=== PATIENT | female | born 1975 | race Caucasian/White ===

== ENCOUNTER 2023-04-07 09:21 | Outpatient (OUT) | payer BC, SELFPAY ==
--- NOTE | 2023-04-07 09:25 | XR_ITS ---
The [address] [address] Patient Name: BONILLA TAVERA MRN: [id number] date: 1975 Sex: F Assigned Patient Location: [facility] Current Patient Location: [facility] Accession/Order Number: [id number] Exam Date: 04/07/2023 09:40 Report Date: 04/07/2023 10:31 At the request of: ANGELI HUFFMAN Procedure: XR cervical spine 5V EXAM: XR cervical spine 5V, XR shoulder LT min 2V HISTORY: M25.512, M54.2 neck pain, left shoulder pain COMPARISON: None TECHNIQUE: 5 views of the cervical spine were obtained to include AP, lateral, and oblique views. FINDINGS: Vertebral body heights are grossly well-maintained. No significant disc space narrowing. Mild degenerative facet changes bilaterally. Oblique views demonstrate on the right mild to moderate neural foraminal narrowing at C4-C5 with mild narrowing at C3-C4 and C5-C6. On the left mild neural foraminal narrowing from C3-C4 through C5-C6. Atlantoaxial interval appears grossly unremarkable. No definite acute fracture or dislocation. 3 views of the left shoulder were obtained. FINDINGS: No definite acute fracture or dislocation. No significant focal osseous or articular abnormalities are identified. Soft tissues are grossly within normal limits. XR/XR cervical spine 5V IMPRESSION: Cervical spine study demonstrates degenerative changes as noted. Left shoulder study is grossly unremarkable. Follow-up as needed. Electronically authenticated by: MILADY MERLOS Date: 04/07/2023 10:31
--- NOTE | 2023-04-07 09:25 | XR_ITS ---
The [address] [address] Patient Name: BONILLA TAVERA MRN: [id number] date: 1975 Sex: F Assigned Patient Location: [facility] Current Patient Location: [facility] Accession/Order Number: [id number] Exam Date: 04/07/2023 09:40 Report Date: 04/07/2023 10:31 At the request of: ANGELI HUFFMAN Procedure: XR shoulder LT min 2V EXAM: XR cervical spine 5V, XR shoulder LT min 2V HISTORY: M25.512, M54.2 neck pain, left shoulder pain COMPARISON: None TECHNIQUE: 5 views of the cervical spine were obtained to include AP, lateral, and oblique views. FINDINGS: Vertebral body heights are grossly well-maintained. No significant disc space narrowing. Mild degenerative facet changes bilaterally. Oblique views demonstrate on the right mild to moderate neural foraminal narrowing at C4-C5 with mild narrowing at C3-C4 and C5-C6. On the left mild neural foraminal narrowing from C3-C4 through C5-C6. Atlantoaxial interval appears grossly unremarkable. No definite acute fracture or dislocation. 3 views of the left shoulder were obtained. FINDINGS: No definite acute fracture or dislocation. No significant focal osseous or articular abnormalities are identified. Soft tissues are grossly within normal limits. XR/XR shoulder LT min 2V IMPRESSION: Cervical spine study demonstrates degenerative changes as noted. Left shoulder study is grossly unremarkable. Follow-up as needed. Electronically authenticated by: MILADY MERLOS Date: 04/07/2023 10:31
== END 2023-04-07 09:22 | disposition home or self-care (01) ==
LOC: RAD 09:21
PROVIDERS: PCP Nurse Practitioner; Visit Provider Nurse Practitioner
DX: M25.512 Pain in left shoulder (principal); M54.2 Cervicalgia
CPT/HCPCS: 72050; 73030

== ENCOUNTER 2023-05-05 12:21 | Outpatient (OUT) | payer BC, SELFPAY ==
--- NOTE | 2023-05-05 | XR_ITS ---
The [address] [address] Patient Name: BONILLA TAVERA MRN: [id number] date: 1975 Sex: F Assigned Patient Location: [facility] Current Patient Location: [facility] Accession/Order Number: [id number] Exam Date: 05/05/2023 12:35 Report Date: 05/05/2023 16:05 At the request of: ANGELI HUFFMAN Procedure: XR finger LT min 2V EXAM: XR finger LT min 2V. HISTORY: Injury to Lt 5th digit. COMPARISON: None. TECHNIQUE: 3 views of the left little finger were obtained. FINDINGS: No definite acute fracture or dislocation. Rakx-oy-dcaojocp degenerative changes about the DIP joint. Mild degenerative change about the PIP joint. Approximately 5 x 4 mm area of lucency in the distal portion of the middle phalanx, likely representing enchondroma, benign cortical defect or other benign cystic process may be considered. Soft tissues are grossly within normal limits. XR/XR finger LT min 2V IMPRESSION: Left little finger study fails to demonstrate definite acute fracture or dislocation. Degenerative changes as noted. Likely enchondroma, possible benign cortical defect or other benign cystic process in the distal portion of the middle phalanx as noted. Follow-up as needed. Electronically authenticated by: MILADY MERLOS Date: 05/05/2023 16:05
--- OUTSIDE RECORDS SUMMARY | 2023-05-05 12:25 | XMS_ITS | CCD ---
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 Name Role Phone DR GIOVANI LERMA Attending Unavailable RAINE, DR MATUTE Consulting Unavailable DR GIOVANI LERMA Primary Care Octavio ELRMA, DR MATUTE Admitting Unavailable Frankie, Sonam Cool Attending Unavailable Frankie, Sonam Cool Attending Unavailable Frankie, Sonam Cool Attending Unavailable Frankie, Sonam Cool Attending Unavailable Frankie, Sonam Cool Attending Unavailable Frankie, Sonam Cool Attending Unavailable Allergies Allergy Classification Reported Allergen(s) Allergy Type Date of Onset Reaction(s) Facility (2 sources) Penicillins; Translations: [penicillins] Drug allergy (disorder) 09-30-2012 [facility] (1 source) Sulfonamides (Antibiotic) Drug allergy (disorder) 09-30-2012 [facility] (1 source) Acetaminophen / oxyCODONE; Translations: [Percocet 5/325] Drug Allergy [facility] Repository (1 source) Sulfamethoxazole; Translations: [sulfamethoxazole] Drug Allergy [facility] Repository Problems Problem Classification Problem Date Documented Da te Episodic/Chronic Malaise and fatigue (4 sources) Other fatigue; Translations: [OTHER FATIGUE] Onset: 04-12-2021 Episodic Unclassified (1 source) COUGH, UNSPECIFIED; Translations: [COUGH, UNSPECIFIED] Onset: 04-18-2021 Results Test Name Value Interpretation Reference Range Facil ity Ambulatory Visit Summaryon 1 06-13-2022 Ambulatory Visit Summary BONILLA TAVERA :1975 Visit Date:04/12/2023 Ambulatory Visit Instructions Your Diagnosis BMI 33.0-33.9,adult Class 1 obesity due to excess calories in adult Nonsmoker Your Care Team Attending Physician - Sonam Bertrand Primary Care Physician - Sonam Bertrand This Is Your Medications List levothyroxine (levothyroxine 50 mcg (0.05 mg) Tab) meloxicam (meloxicam 7.5 mg Tab) phentermine (phentermine 37.5 mg Tab) Procedures Performed Removal of stent (01/11/2019), Cystoscopic laser lithotripsy of ureteric calculus (01/09/2019), diagnostic laparoscopy, bilateral salpingectomy with removal of hydrosalpinx, lysis of adhesions, diagnostic hysteroscopy, endometrial ablation (01/16/2015), Cholecystectomy. Discharge Vitals Temperature (Temporal Artery) 37.6 ?C Heart Rate (Peripheral) 94 Respiratory Rate 16 Blood Pressure 130/82 Height 162.2 cm Height 64 in Weight 89.0 kg Weight 195.8 lb BMI 33.83 Medications What How Much When Why Instructions Unchanged levothyroxine (levothyroxine 50 mcg (0.05 mg) Tab) 1 Tablets By Mouth Every day Unchanged meloxicam (meloxicam 7.5 mg Tab) 1 Tablets By Mouth Every day Left shoulder pain Neck pain BMI 33.0-33.9,adult Non-smoker Unchanged phentermine (phentermine 37.5 mg Tab) 1 Tablets By Mouth Every day Encounter for weight management BMI 34.0-34.9,adult Class 1 obesity due to excess calories in adult Nonsmoker Allergies penicillins (lips blue) sulfamethoxazole (rash) Problems Ongoing - Any problem that you are currently receiving treatment for. Abnormal x-ray of cervical spine Dysuria Encounter for weight management Frequent urination Kidney stone Left shoulder pain Microhematuria Neck pain Nocturia Ureterovesical junction (UVJ) obstruction Urinary urgency Patient Survey You may receive a survey via text or e-mail asking about your office visit. Please share your experience with us by completing your survey. We appreciate your feedback and thank you for choosing us for your care. Martha Arce [facility] Family Medicine Office/Natali Martinez 04-12-2023 Family Medicine Office/Clinic Note HPI Staff Bonilla is a 48 year old female presenting 1 month follow up Weight management: Started Phentermine on 02/14/23 Feels the phentermine isn't working for her anymore Sleeping well:Yes, 6-8 hours Chest pain:No Tremors:No Headaches:No Heart fluttering:No Blurred Vision:No Beginning weight: 90.6Kg/199.32Ibs Previous weight: 88.35Kg/194.37Ibs Today's weight: 89.0kg/195.8 lbs Questions/Concerns: started the medrol dosepak late so one day left. It did help quite a bit and now it's back today Does have a sore throat which just came on no other sxs. History of Present Illness pt presents today for weight management. has not last any weight this month Review of Systems PHQ Score Initial Depression Screen Score: 1 SCORE ROS - Provider Constitutional: no fever, no chills, no sweats, no fatigue Respiratory: no shortness of breath, no cough, no orthopnea, no wheezing. Cardiovascular: no chest pain, no palpitations, no edema. Neurologic: no headache, no dizziness, no numbness, no weakness. Physical Exam Vitals & Measurements T: 37.6 ?C(Temporal Artery) HR: 94(Peripheral) RR: 16 BP: 130/82 SpO2: 98% HT: 64 in HT: 162.2 cm WT: 89.0 kg WT: 195.8 lb BMI: 33.83 General: alert, no acute distress ENMT: oral mucosa moist, no pharyngeal erythema or exudate Cardiovascular: regular rate and rhythm, normal peripheral perfusion Respiratory: Lungs CTA, respirations non labored Extremities: no deformity, no trauma Neurological: oriented x 4, LOC appropriate for age, CN II-XII intact, motor strength equal & normal bilaterally, speech normal Assessment/Plan 1. Encounter for weight management (Z76.89: Persons encountering health services in other specified circumstances) pt presents today for weight management. adipex has lost its effectiveness. will not continue. pt will call insurance to see if it will cover any injecable medications. RTC as needed 2. Left shoulder pain (M25.512: Pain in left shoulder) waiting for pain management to schedule appointment Ordered: methylPREDNISolone, = 1 packet(s), Oral, As Directed, as directed on package labeling, X 6 day(s), # 21 tab(s), Refills(s) 0, Pharmacy: [facility]/pharmacy #[id number], 162.2, cm, 04/06/23 11:51:00 EST, Height/Length Dosing, 89, kg, 04/06/23 11:51:00 EST, Weight Dosing 3. BMI 33.0-33.9,adult (Z68.33: Body mass index [BMI] 33.0-33.9, adult) BMI education complete Ordered: methylPREDNISolone, = 1 packet(s), Oral, As Directed, as directed on package labeling, X 6 day(s), # 21 tab(s), Refills(s) 0, [id number] 162.2, cm, 04/06/23 11:51:00 EST, Height/Length Dosing, 89, kg, 04/06/23 11:51:00 EST, Weight Dosing 4. Class 1 obesity due to excess calories in adult (E66.09: Other obesity due to excess calories) see above 5. Nonsmoker (Z78.9: Other specified health status) continue not smoking Ordered: methylPREDNISolone, = 1 packet(s), Oral, As Directed, as directed on package labeling, X 6 day(s), # 21 tab(s), Refills(s) 0, [id number] 162.2, cm, 04/06/23 11:51:00 EST, Height/Length Dosing, 89, kg, 04/06/23 11:51:00 EST, Weight Dosing Follow-up No qualifying data available Problem List/Past Medical History Ongoing Abnormal x-ray of cervical spine Dysuria Encounter for weight management Frequent urination Kidney stone Left shoulder pain Microhematuria Neck pain Nocturia Ureterovesical junction (UVJ) obstruction Urinary urgency Historical No qualifying data Procedure/Surgical History Removal of stent (01/11/2019), Cystoscopic laser lithotripsy of ureteric calculus (01/09/2019), diagnostic laparoscopy, bilateral salpingectomy with removal of hydrosalpinx, lysis of adhesions, diagnostic hysteroscopy, endometrial ablation (01/16/2015), Cholecystectomy. Medications levothyroxine 50 mcg (0.05 mg) Tab, 50 mcg= 1 tab(s), Oral, Daily meloxicam 7.5 mg Tab, 7.5 mg= 1 tab(s), Oral, Daily, Not taking phentermine 37.5 mg Tab, 37.5 mg= 1 tab(s), Oral, Daily Allergies penicillins (lips blue) sulfamethoxazole (rash) Social History Alcohol - Denies Alcohol Use, 01/05/2015 Substance Abuse - Denies Substance Abuse, 01/05/2015 Tobacco - Denies Tobacco Use, 01/05/2015 Never (less than 100 in lifetime) Tobacco Use:. Never Smokeless Tobacco Use:. Household tobacco concerns: No., 04/12/2023 Family History Family history is negative Immunizations Vaccine Date Status Comments SARS-CoV-2 (COVID-19) mRNA BNT-162b2 vax 02/16/2021 Recorded 2022-10-17: TPV40 SARS-CoV-2 (COVID-19) mRNA BNT-162b2 vax 10/04/2020 Recorded 2022-10-17: TPV40 Normal [facility] Comment on above: Result Comment: Elec tronically Signed By: Sonam Bertrand\.br\Date and Time Signed: 04/12/23 17:05 EST Physician Referralon 023 Physician Referral [id number] 5#1.00TIFF [facility] Ambulatory Visit Summaryon 1 06-07-2022 Ambulatory Visit Summary BONILLA TAVERA :1975 Visit Date:04/06/2023 Ambulatory Visit Instructions Your Diagnosis BMI 33.0-33.9,adult Non-smoker Your Care Team Attending Physician - Sonam Bertrand Primary Care Physician - Sonam Bertrand This Is Your Medications List levothyroxine (levothyroxine 50 mcg (0.05 mg) Tab) phentermine (phentermine 37.5 mg Tab) Procedures Performed Removal of stent (01/11/2019), Cystoscopic laser lithotripsy of ureteric calculus (01/09/2019), diagnostic laparoscopy, bilateral salpingectomy with removal of hydrosalpinx, lysis of adhesions, diagnostic hysteroscopy, endometrial ablation (01/16/2015), Cholecystectomy. Discharge Vitals Heart Rate (Peripheral) 68 Respiratory Rate 18 Blood Pressure 110/74 Height 162.2 cm Height 64 in Weight 89.0 kg Weight 195.8 lb BMI 33.83 What to do next Scheduled Follow-Up Appointments Monday 5:00 PM EST With: Sonam Bertrand Where: [facility] Medicine [facility] Office/Clini c Noteon 04-06-2023 Family Medicine Office/Clinic Note HPI Staff Bonilla is a 48 year old female presenting for acute pain Pain characteristics: Pain location: Bilateral shoulders, left is worse Intensity:7/10Consta nt left shoulder inner is throbbing and getting worse Onset: 6 months Medication used: Heat and Ice Left arm woke her up this morning throbbing no injury. Middle neck pain for over a year pain is intermittent stiffness Feeling fatigued all the time within the last few weeks, sleeping 6-7 hours a night has been waking up middle of the night but is able to fall back asleep. History of Present Illness pt presents today with c/o left shoulder upper arm pain and neck pain Review of Systems PHQ Score Initial Depression Screen Score: 0 SCORE ROS - Provider Constitutional: no fever, no chills, no sweats, no fatigue Respiratory: no shortness of breath, no cough, no orthopnea, no wheezing. Cardiovascular: no chest pain, no palpitations, no edema. Neurologic: no headache, no dizziness, no numbness, no weakness. left shoulder upper arm pain and neck pain/stiffness Physical Exam Vitals & Measurements HR: 68(Peripheral) RR: 18 BP: 110/74 SpO2: 96% HT: 64 in HT: 162.2 cm WT: 89.0 kg WT: 195.8 lb BMI: 33.83 General: alert, no acute distress ENMT: oral mucosa moist, no pharyngeal erythema or exudate Cardiovascular: regular rate and rhythm, normal peripheral perfusion Respiratory: Lungs CTA, respirations non labored Extremities: no deformity, no trauma Neurological: oriented x 4, LOC appropriate for age, CN II-XII intact, motor strength equal & normal bilaterally, speech normal limited ROM when lifting left arm greater than 90 degrees above head Assessment/Plan 1. Left shoulder pain (M25.512: Pain in left shoulder) left shoulder pain that runs down left bicep. does not remember injuring it. will send meloxicam and medrol dose pack Ordered: meloxicam, 7.5 mg = 1 tab(s), Oral, Daily, # 30 tab(s), Refills(s) 0, Pharmacy: [facility]/pharmacy #[id number], 162.2, cm, 04/06/23 11:51:00 EST, Height/Length Dosing, 89, kg, 04/06/23 11:51:00 EST, Weight Dosing methylPREDNISolone, = 1 packet(s), Oral, As Directed, as directed on package labeling, X 6 day(s), # 21 tab(s), Refills(s) 0, [id number] 162.2, cm, 04/06/23 11:51:00 EST, Height/Length Dosing, 89, kg, 04/06/23 11:51:00 EST, Weight Dosing 2. Neck pain (M54.2: Cervicalgia) x ray order provided. to be done at [facility] Ordered: meloxicam, 7.5 mg = 1 tab(s), Oral, Daily, # 30 tab(s), Refills(s) 0, [id number], 162.2, cm, 04/06/23 11:51:00 EST, Height/Length Dosing, 89, kg, 04/06/23 11:51:00 EST, Weight Dosing methylPREDNISolone, = 1 packet(s), Oral, As Directed, as directed on package labeling, X 6 day(s), # 21 tab(s), Refills(s) 0, [id number], 162.2, cm, 04/06/23 11:51:00 EST, Height/Length Dosing, 89, kg, 04/06/23 11:51:00 EST, Weight Dosing 3. BMI 33.0-33.9,adult (Z68.33: Body mass index [BMI] 33.0-33.9, adult) [place] education complete Ordered: meloxicam, 7.5 mg = 1 tab(s), Oral, Daily, # 30 tab(s), Refills(s) 0, [id number], 162.2, cm, 04/06/23 11:51:00 EST, Height/Length Dosing, 89, kg, 04/06/23 11:51:00 EST, Weight Dosing methylPREDNISolone, = 1 packet(s), Oral, As Directed, as directed on package labeling, X 6 day(s), # 21 tab(s), Refills(s) 0, [id number], 162.2, cm, 04/06/23 11:51:00 EST, Height/Length Dosing, 89, kg, 04/06/23 11:51:00 EST, Weight Dosing 4. Non-smoker (Z78.9: Other specified health status) continue not smoking Ordered: meloxicam, 7.5 mg = 1 tab(s), Oral, Daily, # 30 tab(s), Refills(s) 0, [id number], 162.2, cm, 04/06/23 11:51:00 EST, Height/Length Dosing, 89, kg, 04/06/23 11:51:00 EST, Weight Dosing methylPREDNISolone, = 1 packet(s), Oral, As Directed, as directed on package labeling, X 6 day(s), # 21 tab(s), Refills(s) 0, [id number], 162.2, cm, 04/06/23 11:51:00 EST, Height/Length Dosing, 89, kg, 04/06/23 11:51:00 EST, Weight Dosing Follow-up No qualifying data available Problem List/Past Medical History Ongoing Dysuria Encounter for weight management Frequent urination Kidney stone Left shoulder pain Microhematuria Neck pain Nocturia Ureterovesical junction (UVJ) obstruction Urinary urgency Historical No qualifying data Procedure/Surgical History Removal of stent (01/11/2019), Cystoscopic laser lithotripsy of ureteric calculus (01/09/2019), diagnostic laparoscopy, bilateral salpingectomy with removal of hydrosalpinx, lysis of adhesions, diagnostic hysteroscopy, endometrial ablation (01/16/2015), Cholecystectomy. Medications levothyroxine 50 mcg (0.05 mg) Tab, 50 mcg= 1 tab(s), Oral, Daily Medrol 4 mg Tab, 1 packet(s), Oral, As Directed meloxicam 7.5 mg Tab, 7.5 mg= 1 tab(s), Oral, Daily phentermine 37.5 mg Tab, 37.5 mg= 1 tab(s), Oral, Daily Allergies penicillins (lips blue) sulfamethoxazole (rash) Social History Alcohol - Denies Alcoho (more content not included)... Normal [facility] Comment on above: Result Comment: Elec tronically Signed By: Sonam Bertrand\.br\Date and Time Signed: 04/06/23 12:25 EST Physician Orderon 04-06-2023 Physician Order [id number] #1.00TIFF [facility] Ambulatory Visit Summaryon 1 05-15-2022 Ambulatory Visit Summary BONILLA TAVERA :1975 Visit Date:03/15/2023 Ambulatory Visit Instructions Your Diagnosis Encounter for weight management Urinary frequency BMI 33.0-33.9,adult Non-smoker Class 1 obesity due to excess calories in adult Tests Performed Urnls Dip Stick Auto w/o Microscopy POC [id number] Your Care Team Attending Physician - Sonam Bertrand Primary Care Physician - Sonam Bertrand This Is Your Medications List levothyroxine (levothyroxine 50 mcg (0.05 mg) Tab) phentermine (phentermine 37.5 mg Tab) Procedures Performed Removal of stent (01/11/2019), Cystoscopic laser lithotripsy of ureteric calculus (01/09/2019), diagnostic laparoscopy, bilateral salpingectomy with removal of hydrosalpinx, lysis of adhesions, diagnostic hysteroscopy, endometrial ablation (01/16/2015), Cholecystectomy. Discharge Vitals Heart Rate (Peripheral) 68 Respiratory Rate 18 Blood Pressure 124/68 Height 162.2 cm Height 64 in Weight 88.35 kg Weight 194.37 lb BMI 33.58 What to do next Scheduled Follow-Up Appointments Monday 5:00 PM EST With: Sonam Bertrand Where: [facility] Medicine [facility] Family Medicine Office/Clini c Noteon 03-15-2023 Family Medicine Office/Clinic Note HPI Staff Bonilla is a 47 year old female presenting for 1 month follow up Weight management: Started Phentermine on 02/14/23 Sleeping well:Yes, 6-8 hours Chest pain:No Tremors:No Headaches:No Heart fluttering:No Blurred Vision:No Beginning weight: 199.32Ibs/90.6Kg Previous weight: same as above Today's weight: 194.7Ibs Questions/Concerns: pt having uti symptoms started 2 weeks ago frequency and burning. History of UTI and yeast infections. pt states she had some left over medication unsure what it was called took it for 3 days and her symptoms have improved. History of Present Illness pt presets today for weight management, Review of Systems PHQ Score Initial Depression Screen Score: 0 SCORE ROS - Provider Constitutional: no fever, no chills, no sweats, no fatigue Respiratory: no shortness of breath, no cough, no orthopnea, no wheezing. Cardiovascular: no chest pain, no palpitations, no edema. Neurologic: no headache, no dizziness, no numbness, no weakness. Physical Exam Vitals & Measurements HR: 68(Peripheral) RR: 18 BP: 124/68 SpO2: 98% HT: 64 in HT: 162.2 cm WT: 88.35 kg WT: 194.37 lb BMI: 33.58 General: alert, no acute distress ENMT: oral mucosa moist, no pharyngeal erythema or exudate Cardiovascular: regular rate and rhythm, normal peripheral perfusion Respiratory: Lungs CTA, respirations non labored Extremities: no deformity, no trauma Neurological: oriented x 4, LOC appropriate for age, CN II-XII intact, motor strength equal & normal bilaterally, speech normal Assessment/Plan 1. Encounter for weight management (Z76.89: Persons encountering health services in other specified circumstances) pt presents today for weight management. total weight loss 5 pounds. will continue adipex. denies side effects. RTC 4 weeks Ordered: phentermine, 37.5 mg = 1 tab(s), Oral, Daily, # 30 tab(s), Refills(s) 0, Pharmacy: [facility], 162.2, cm, 02/14/23 10:52:00 EDT, Height/Length Dosing, 90.6, kg, 02/14/23 10:52:00 EDT, Weight Dosing phentermine, 37.5 mg = 1 tab(s), Oral, Daily, # 30 tab(s), Refills(s) 0, Pharmacy: [facility], 162.2, cm, 03/15/23 16:46:00 EST, Height/Length Dosing, 88.3, kg, 03/15/23 16:46:00 EST, Weight Dosing 2. Urinary frequency (R35.0: Frequency of micturition) pt was having uti symptoms had some left over meds and took them urinalysis negative in office today. Ordered: Urnls Dip Stick Auto w/o Microscopy POC [id number] 3. BMI 33.0-33.9,adult (Z68.33: Body mass index [BMI] 33.0-33.9, adult) bmi education complete 4. Non-smoker (Z78.9: Other specified health status) continue not smoking Ordered: phentermine, 37.5 mg = 1 tab(s), Oral, Daily, # 30 tab(s), Refills(s) 0, Pharmacy: [facility], 162.2, cm, 02/14/23 10:52:00 EDT, Height/Length Dosing, 90.6, kg, 02/14/23 10:52:00 EDT, Weight Dosing phentermine, 37.5 mg = 1 tab(s), Oral, Daily, # 30 tab(s), Refills(s) 0, Pharmacy: [facility], 162.2, cm, 03/15/23 16:46:00 EST, Height/Length Dosing, 88.3, kg, 03/15/23 16:46:00 EST, Weight Dosing Class 1 obesity due to excess calories in adult (E66.09: Other obesity due to excess calories) Ordered: phentermine, 37.5 mg = 1 tab(s), Oral, Daily, # 30 tab(s), Refills(s) 0, Pharmacy: [facility], 162.2, cm, 02/14/23 10:52:00 EDT, Height/Length Dosing, 90.6, kg, 02/14/23 10:52:00 EDT, Weight Dosing phentermine, 37.5 mg = 1 tab(s), Oral, Daily, # 30 tab(s), Refills(s) 0, Pharmacy: [facility], 162.2, cm, 03/15/23 16:46:00 EST, Height/Length Dosing, 88.3, kg, 03/15/23 16:46:00 EST, Weight Dosing Follow-up No qualifying data available Problem List/Past Medical History Ongoing Dysuria Encounter for weight management Frequent urination Kidney stone Microhematuria Nocturia Ureterovesical junction (UVJ) obstruction Urinary urgency Historical No qualifying data Procedure/Surgical History Removal of stent (01/11/2019), Cystoscopic laser lithotripsy of ureteric calculus (01/09/2019), diagnostic laparoscopy, bilateral salpingectomy with removal of hydrosalpinx, lysis of adhesions, diagnostic hysteroscopy, endometrial ablation (01/16/2015), Cholecystectomy. Medications levothyroxine 50 mcg (0.05 mg) Tab, 50 mcg= 1 tab(s), Oral, Daily phentermine 37.5 mg Tab, 37.5 mg= 1 tab(s), Oral, Daily Allergies penicillins (lips blue) sulfamethoxazole (rash) Social History Alcohol - Denies Alcohol Use, 01/05/2015 Substance Abuse - Denies Substance Abuse, 01/05/2015 Tobacco - Denies Tobacco Use, 01/05/2015 Never (less than 100 in lifetime) Tobacco Use:. Never Smokeless Tobacco Use:. Household tobacco concerns: No., 03/15/2023 Family History Family history is negative Immunizations Vaccine Date Status Comments SARS-CoV-2 (COVID-19) mRNA BNT-162b2 vax 02/16/2021 Recorded 2022-10-17: TPV40 SARS-CoV-2 (COVID-19) mRNA BNT-162b2 vax 10/04/2020 Recorded 2022-10-17: TPV40 Lab Results (more content not included)... Normal [facility] Comment on above: Result Comment: Elec tronically Signed By: Sonam Bertrand\.br\Date and Time Signed: 03/15/23 16:58 EST Ambulatory Visit Summaryon 1 Ambulatory Visit Summary BONILLA TAVERA :1975 Visit Date:02/14/2023 Ambulatory Visit Instructions Your Diagnosis BMI 34.0-34.9,adult Class 1 obesity due to excess calories in adult Nonsmoker Your Care Team Attending Physician - Sonam Bertrand Primary Care Physician - Sonam Bertrand This Is Your Medications List levothyroxine Procedures Performed Removal of stent (01/11/2019), Cystoscopic laser lithotripsy of ureteric calculus (01/09/2019), diagnostic laparoscopy, bilateral salpingectomy with removal of hydrosalpinx, lysis of adhesions, diagnostic hysteroscopy, endometrial ablation (01/16/2015), Cholecystectomy. Discharge Vitals Heart Rate (Peripheral) 80 Respiratory Rate 16 Blood Pressure 124/76 Height 162.2 cm Height 64 in Weight 90.6 kg Weight 199.32 lb BMI 34.44 What to do next Scheduled Follow-Up Appointments Monday 3:20 PM EST With: Sonam Bertrand Where: [facility] Normal [facility] Family Medicine Office/Clini c Noteon 02-14-2023 Family Medicine Office/Clinic Note HPI Staff Bonilla is a 47 year old female presenting to [facility] Establish Care: History: hypothyroid, Any previous diagnosis: none History of seeing any specialist: no When was your last doctors visit: 8 mos ago Last provider: Dr Lerma Any recent labs: none Health Maintenance UTD: Colonoscopy: not yet Mammogram: 2 years Pelvic/Pap: few years but was told could go every 5 years due to no menses flu: refused Acute: Current issues/complaints: would like to discuss weight loss management History of Present Illness pt presents today to discuss weight management. Review of Systems PHQ Score Initial Depression Screen Score: 1 ROS - Provider Constitutional: no fever, no chills, no sweats, no fatigue Respiratory: no shortness of breath, no cough, no orthopnea, no wheezing. Cardiovascular: no chest pain, no palpitations, no edema. Neurologic: no headache, no dizziness, no numbness, no weakness. Physical Exam Vitals & Measurements HR: 80(Peripheral) RR: 16 BP: 124/76 SpO2: 97% HT: 64 in HT: 162.2 cm WT: 90.6 kg WT: 199.32 lb BMI: 34.44 General: alert, no acute distress ENMT: oral mucosa moist, no pharyngeal erythema or exudate Cardiovascular: regular rate and rhythm, normal peripheral perfusion Respiratory: Lungs CTA, respirations non labored Extremities: no deformity, no trauma Neurological: oriented x 4, LOC appropriate for age, CN II-XII intact, motor strength equal & normal bilaterally, speech normal Assessment/Plan 1. Encounter for weight management (Z76.89: Persons encountering health services in other specified circumstances) pt presents today for weight management. she has taken adipex a couple times in the past and did well with it. will send rx for adipex. medication agreement signed. all questions answered. RTC 4 weeks Ordered: phentermine, 37.5 mg = 1 tab(s), Oral, Daily, # 30 tab(s), Refills(s) 0, Pharmacy: [facility], 162.2, cm, 02/14/23 10:52:00 EDT, Height/Length Dosing, 90.6, kg, 02/14/23 10:52:00 EDT, Weight Dosing 2. BMI 34.0-34.9,adult (Z68.34: Body mass index [BMI] 34.0-34.9, adult) BMI education complete Ordered: phentermine, 37.5 mg = 1 tab(s), Oral, Daily, # 30 tab(s), Refills(s) 0, Pharmacy: [facility], 162.2, cm, 02/14/23 10:52:00 EDT, Height/Length Dosing, 90.6, kg, 02/14/23 10:52:00 EDT, Weight Dosing 3. Class 1 obesity due to excess calories in adult (E66.09: Other obesity due to excess calories) see above Ordered: phentermine, 37.5 mg = 1 tab(s), Oral, Daily, # 30 tab(s), Refills(s) 0, Pharmacy: [facility], 162.2, cm, 02/14/23 10:52:00 EDT, Height/Length Dosing, 90.6, kg, 02/14/23 10:52:00 EDT, Weight Dosing 4. Nonsmoker (Z78.9: Other specified health status) continue not smoking Ordered: phentermine, 37.5 mg = 1 tab(s), Oral, Daily, # 30 tab(s), Refills(s) 0, Pharmacy: [facility], 162.2, cm, 02/14/23 10:52:00 EDT, Height/Length Dosing, 90.6, kg, 02/14/23 10:52:00 EDT, Weight Dosing Follow-up No qualifying data available Problem List/Past Medical History Ongoing Dysuria Encounter for weight management Frequent urination Kidney stone Microhematuria Nocturia Ureterovesical junction (UVJ) obstruction Urinary urgency Historical No qualifying data Procedure/Surgical History Removal of stent (01/11/2019), Cystoscopic laser lithotripsy of ureteric calculus (01/09/2019), diagnostic laparoscopy, bilateral salpingectomy with removal of hydrosalpinx, lysis of adhesions, diagnostic hysteroscopy, endometrial ablation (01/16/2015), Cholecystectomy. Medications levothyroxine, Daily phentermine 37.5 mg Tab, 37.5 mg= 1 tab(s), Oral, Daily Allergies penicillins (lips blue) sulfamethoxazole (rash) Social History Alcohol - Denies Alcohol Use, 01/05/2015 Substance Abuse - Denies Substance Abuse, 01/05/2015 Tobacco - Denies Tobacco Use, 01/05/2015 Never (less than 100 in lifetime) Tobacco Use:. Never Smokeless Tobacco Use:., 02/14/2023 Family History Family history is negative Immunizations Vaccine Date Status Comments SARS-CoV-2 (COVID-19) mRNA BNT-162b2 vax 02/16/2021 Recorded 2022-10-17: TPV40 SARS-CoV-2 (COVID-19) mRNA BNT-162b2 vax 10/04/2020 Recorded 2022-10-17: TPV40 Normal [facility] Comment on above: Result Comment: Elec tronically Signed By: Sonam Bertrand\.sarah\Date and Time Signed: 02/14/23 11:29 EDT Medication Consenton 023 Medication Consent [id number] #[id number] Normal [facility] RESPIRATORY PANEL PLUSon Adenovirus Not detected Normal NOT DETECTED [facility] Comment on above: Performed By: #### R SPLUS #### [facility] [address] [address] [address] Isidoro Mckeon Parapertusis Not detected Normal NOT DETECTED [facility] Comment on above: Performed By: #### R SPLUS #### [facility] [address] [address] [address] Isidoro Mckeon Pertussis Not detected Normal NOT DETECTED [facility] Comment on above: Performed By: #### R SPLUS #### [facility] [address] [address] [address] Isidoro Bryant Chlamydia Pneumoniae Not detected Normal NOT DETECTED [facility] Comment on above: Performed By: #### R SPLUS #### [facility] [address] [address] [address] Isidoro Bryant Coronavirus 229E Not detected Normal NOT DETECTED [facility] Comment on above: Performed By: #### R SPLUS #### [facility] [address] [place] [address] Dr. Isidoro Bryant Coronavirus HKU1 Not detected Normal NOT DETECTED [facility] Comment on above: Performed By: #### R SPLUS #### [facility] [address] [place] [address] Dr. Isidoro Bryant Coronavirus NL63 Not detected Normal NOT DETECTED [facility] Comment on above: Performed By: #### R SPLUS #### [facility] [address] [place] [address] Dr. Isidoro Bryant Coronavirus OC43 Not detected Normal NOT DETECTED [facility] Comment on above: Performed By: #### R SPLUS #### [facility] [address] [place] [address] Dr. Isidoro Bryant Influenza A H1 2009 Not detected Normal NOT DETECTED [facility] Comment on above: Performed By: #### R SPLUS #### [facility] [address] [place] [address] Dr. Isidoro Bryant Influenza A H3 Not detected Normal NOT DETECTED [facility] Comment on above: Performed By: #### R SPLUS #### [facility] [address] [place] [address] Dr. Isidoro Bryant Influenza B Not detected Normal NOT DETECTED [facility] Comment on above: Performed By: #### R SPLUS #### [facility] [address] [place] [address] Dr. Isidoro Bryant Metapneumovirus Detected Abnormal NOT DETECTED [facility] Comment on above: Performed By: #### R SPLUS #### [facility] [address] [address] [address] Isidoro Bryant Mycoplas. Pneumoniae Not detected Normal NOT DETECTED [facility] Comment on above: Performed By: #### R SPLUS #### [facility] [address] [place] [address] Dr. Isidoro Bryant Parainfluenza 1 Not detected Normal NOT DETECTED [facility] Comment on above: Performed By: #### R SPLUS #### [facility] [address] [place] [address] Dr. Isidoro Bryant Parainfluenza 2 Not detected Normal NOT DETECTED [facility] Comment on above: Performed By: #### R SPLUS #### [facility] [address] [place] [address] Dr. Isidoro Bryant Parainfluenza 3 Not detected Normal NOT DETECTED [facility] Comment on above: Performed By: #### R SPLUS #### [facility] [address] [place] [address] Dr. Isidoro Bryant Parainfluenza 4 Not detected Normal NOT DETECTED [facility] Comment on above: Performed By: #### R SPLUS #### [facility] [address] [place] [address] Dr. Isidoro Bryant Rhino/Enterovirus Not detected Normal NOT DETECTED [facility] Comment on above: Performed By: #### R SPLUS #### [facility] [address] [place] [address] Dr. Isidoro Bryant RP2 Header 1 RESPIRATORY PANEL: VIRUSES Normal [facility] Comment on above: Performed By: #### R SPLUS #### [facility] [address] [place] [address] Dr. Isidoro Bryant RP2 Header 2 RESPIRATORY PANEL: BACTERIA Normal [facility] Comment on above: Performed By: #### R SPLUS #### [facility] [address] [place] [address] Dr. Isidoro Bryant RSV Not detected Normal NOT DETECTED [facility] Comment on above: Performed By: #### R SPLUS #### [facility] [address] [place] [address] Dr. Isidoro Bryant SARS-CoV-2 (COVID-19) RNA SHEKHAR+probe Ql (Unsp spec) Not detected Normal NOT DETECTED [facility] Comment on above: Performed By: #### R SPLUS #### [facility] [address] [place], [place] [address] Dr. Isidoro Bryant Encounters Encounter Date Encounter Type Care Provider Facility Start: 04-12-2023 End: 04-13-2023 ambulatory Sonam L Frankie [facility] Start: 04-06-2023 End: 04-07-2023 ambulatory Sonam L Frankie [facility] Start: 03-15-2023 End: 03-16-2023 ambulatory Sonam L Frankie [facility] Start: 02-14-2023 End: 02-15-2023 ambulatory Sonam L Frankie [facility] Start: 01-30-2023 End: 01-31-2023 ambulatory Sonam L Frankie [facility] Start: 10-19-2022 End: 10-20-2022 ambulatory Sonam L Frankie [facility] Start: 10-13-2022 ambulatory Sonam Frankie Facility:[facility] Start: 04-12-2021 End: 04-12-[address] GIOVANI LERMA Facility:[facility] Payers Date Payer Category Payer Unknown [id number] 1975 Unknown [id number] 2.16.84 [id number] 1975 Unknown [id number] 2.16.8 [id number] 1975 Unknown [id number] 2.16.8 [id number] 1977 Unknown [id number] 2.16.8 [id number] 1977 Unknown [id number] 2.16.8 [id number] 1977 Unknown [id number] 2.16.8 [id number] 1977 Unknown [id number] 2.16.8 [id number] 1959 Unknown [id number] Summary Purpose Family History No Family History Records FoundNo Family History Records Found Advance Directives No Advanced Directives Records FoundNo Advanced Directives Records Found Additional Source Comments INFORMATION SOURCE (unrecogn ized section and content) DATE CREATED AUTHOR 04/18/2021 [facility] DATE CREATED AUTHOR AUTHOR'S ORGANIZ ATION 04/13/2023 [facility] FOR RECORDS PERTAINING TO PATIENTS WHO ARE OR HAVE BEEN ENROLLED IN A CHEMICAL DEPENDENCY/SUBSTANCEABUSE PROGRAM, SOME INFORMATION MAY BE OMITTED. This clinical summary was aggregated from multiple sources. Caution should be exercised in using it in the provision of clinical care. This summary normalizes information from multiple sources, and as a consequence, information in this document may materially change the coding, format and clinical context of patient data. In addition, data may be omitted in some cases. CLINICAL DECISIONS SHOULD BE BASED ON THE PRIMARY CLINICAL RECORDS. [facility]. provides no warranty or guarantee of the accuracy or completeness of information in this document.
== END 2023-05-05 12:22 | disposition home or self-care (01) ==
PROVIDERS: PCP Nurse Practitioner; Visit Provider Nurse Practitioner
DX: S69.92XA Unspecified injury of left wrist, hand and finger(s), initial encounter (principal)
CPT/HCPCS: 73140

== ENCOUNTER 2023-06-01 14:40 | Outpatient (OUT) | payer BC, SELFPAY ==
--- NOTE | 2023-06-01 14:55 | P.CN_ITS ---
Consult Note: HPI Data of Consult Patient: new to practice Requesting Physician: Lexi Ashby NP Primary Care Provider: ANGELI HUFFMAN Consult Narrative Reason for consult: neck pain and BUE pain Narrative: Teresa anaya pleasant 48 year female presents for evaluation and management of chronic neck pain and bilateral upper extremity pain. Today pain 4/10 increases to 9/10 at times. patient reports pain is a deep ache and sharp shooting pain that radiates down interior and medial arms extending into hands. Patient denies weakness. Denies headaches. Patient reports random onset but sleeping on her left side increases the nerve pain. Patient finds no benefit from ibuprofen. Found mild benefit from first medrol dose pack from PCP, no relief from second. Has not had PT/HEP. cc:: CC: Lexi Ashby NP Review of Systems ROS Status of ROS 10 or more systems reviewed and unremark able except as noted in history and below Musculoskeletal Reports: neck pain Exam Constitutional Documenting provider has reviewed patient's vital signs: yes Common normals: no apparent distress, oriented x3, healthy appearing, alert and well nourished General appearance: cooperative HENMT Common normals: normocephalic, hearing grossly normal bilaterally and moist oral mucous membranes Head and scalp: normocephalic Eye Common normals: PERRL Pupil: PERRL Neck & C-Spine Common normals: full ROM General: normal visual inspection Cervical spine: pain with cervical ROM Other: negative spurlings radicular pain l>r following C5/6 C6/7 dermatomal pattern Chest Common normals: inspection of chest normal Respiratory Common normals: normal respiratory effort, no retractions and no use of accessory muscles Back & Pelvis Common normals: thoracic and lumbar spine normal to inspection, thoraco-lumbar ROM normal and straight leg raise negative bilaterally Extremity Common normals: normal to inspection and full ROM Other: mildly positive phalens test, negative finklestein and tinnels Neuro Common normals: oriented x3, CN's II-XII intact bilaterally, moves all extremities, no focal motor deficits, no sensory deficits noted and deep tendon reflexes 2+ bilaterally Sensorium/orientation: alert Motor exam: strength 5/5 throughout and no movement abnormalities noted Psych Common normals: mental status grossly normal, thought process normal, cooperative, affect normal, speech normal and activity/motor behavior normal Speech: normal speech Thought process: normal thought process Results Imaging cervical xray: Attestation: I have reviewed the pertinent imaging results. Radiologist's impression: Vertebral body heights are grossly well-maintained. No significant disc space narrowing. Mild degenerative facet changes bilaterally. Oblique views demonstrate on the right mild to moderate neural foraminal narrowing at C4-C5 with mild narrowing at C3-C4 and C5-C6. On the left mild neural foraminal narrowing from C3-C4 through C5-C6. Atlantoaxial interval appears grossly unremarkable. No definite acute fracture or dislocation. Additional Findings Additional findings: I have checked an OARRS report on this patient today and there are no aberrancies noted in the prescribing history.?? A drug screen was completed and reviewed within the last year, and if there has not been a drug screen completed we ordered one today to monitor higher risk, state monitored pain medication use. As part of providing excellent, safe, comprehensive care, the following was completed at our patient's visit: 1. A medication reconciliation and review to ensure accurate knowledge of current/active medications, including asking our patients to inform us about any [id number] medications or herbal remedies/nutritional supplements/alternative remedies. 2. A review to specifically ensure our patients have had annual screening for: elevated body mass index (BMI), tobacco use, screening for depression, and screening for unhealthy alcohol use. When screening is concerning, patients are provided with education and the specific recommendation to discuss the concerning health issue and treatment options with their primary care provider. Assessment and Plan Assessment and Plan (1) Cervical spinal stenosis: (2) Cervical radiculopathy: (3) Carpal tunnel syndrome: Assessment and Plan: mild (4) Cervical spondylosis: Assessment and Plan: Vertebral body heights are grossly well-maintained. No significant disc space narrowing. Mild degenerative facet changes bilaterally. Oblique views demonstrate on the right mild to moderate neural foraminal narrowing at C4-C5 with mild narrowing at C3-C4 and C5-C6. On the left mild neural foraminal narrowing from C3-C4 through C5-C6. Atlantoaxial interval appears g rossly unremarkable. No definite acute fracture or dislocation. Plan PT for cervical stenosis with radiculopathy, cervical spondylosis start gabapentin 300mg HS for two weeks, increasing to BID. discussed risks vs benefits and side effects start meloxicam 15mg daily f/u after completion of PT, consider MRI
== END 2023-06-01 14:41 | disposition home or self-care (01) ==
PROVIDERS: PCP Nurse Practitioner; Visit Provider Nurse Practitioner
DX: M48.02 Spinal stenosis, cervical region (principal); M54.12 Radiculopathy, cervical region; G56.00 Carpal tunnel syndrome, unspecified upper limb; M47.812 Spondylosis without myelopathy or radiculopathy, cervical region
CPT/HCPCS: G0463

== ENCOUNTER 2023-06-13 07:59 | Outpatient (RCR) | payer BC, SELFPAY | END 2023-06-16 15:07 | disposition home or self-care (01) | LOC: PT 07:59 | PROVIDERS: PCP Nurse Practitioner; Visit Provider Nurse Practitioner | DX: M54.12 Radiculopathy, cervical region (principal); M47.812 Spondylosis without myelopathy or radiculopathy, cervical region | CPT/HCPCS: 97110; 97140; 97161 ==

== ENCOUNTER 2023-06-29 08:10 | Outpatient (OUT) | payer BC, SELFPAY ==
--- OUTSIDE RECORDS SUMMARY | 2023-06-29 08:12 | XMS_ITS | CCD ---
Author Name Unknown Address [facility] [place] [id number] Organization [facility] Care Team Providers Care Food Service Worker [facility] Name Role Phone RAINE, DR MATUTE Attending Unavailable RAINE, DR MATUTE Consulting Unavailable RAINE, DR MATUTE Primary Care Unavailable RAINE, DR MATUTE Admitting Unavailable Frankie, Sonam Cool Attending Unavailable Rfankie, Sonam Cool Attending Unavailable Frankie, Sonam Cool Attending Unavailable Frankie, Sonam Cool Attending Unavailable Frankie, Sonam Cool Attending Unavailable Frankie, Sonam Cool Attending Unavailable Frankie, Sonam Cool Attending Unavailable Frankie, Sonam Cool Attending Unavailable Allergies Allergy Classification Reported Allergen(s) Allergy Type Date of Onset Reaction(s) Facility (2 sources) Penicillins; Translations: [penicillins] Drug allergy (disorder) 09-30-2012 [facility] Repository (1 source) Sulfonamides (Antibiotic) Drug allergy (disorder) 09-30-2012 [facility] Repository (1 source) Acetaminophen / oxyCODONE; Translations: [Percocet 5/325] Drug Allergy [facility] Repository (1 source) Sulfamethoxazole; Translations: [sulfamethoxazole] Drug Allergy [facility] Repository Problems Problem Classification Problem Date Documented Da te Episodic/Chronic Malaise and fatigue (4 sources) Other fatigue; Translations: [OTHER FATIGUE] Onset: 04-12-2021 Episodic Unclassified (1 source) COUGH, UNSPECIFIED; Translations: [COUGH, UNSPECIFIED] Onset: 04-18-2021 Results Test Name Value Interpretation Reference Range Facility Family Medicine Office/Clini c Noteon 06-13-2023 Family Medicine Office/Clinic Note HPI Staff Bonilla is a 48 year old female presenting for acute visit Snoring: yes Witnessed Apnea: unsure Gasping at night: no Fatigue: yes Restless leg: no HTN: no Nocturnal Urination: no Concerns: pt states wakes her up often due to her snoring so loudly. She did ask her if she had any apnea and he hasn't ever witnessed. has tried breathe strips long time ago. Pt would like to discuss weight loss options she is interested in Ozempic through [facility]. History of Present Illness pt presents today with complaint of worsening snoring. and weight gain Review of Systems PHQ Score Initial Depression Screen Score: 0 SCORE ROS - Provider Constitutional: no fever, no chills, no sweats, no fatigue Respiratory: no shortness of breath, no cough, no orthopnea, no wheezing. Cardiovascular: no chest pain, no palpitations, no edema. Neurologic: no headache, no dizziness, no numbness, no weakness. loud snoring Physical Exam Vitals & Measurements HR: 78(Peripheral) RR: 18 BP: 128/78 SpO2: 99% HT: 64 in HT: 162.0 cm WT: 93.0 kg WT: 204.6 lb BMI: 35.44 General: alert, no acute distress ENMT: oral mucosa moist, no pharyngeal erythema or exudate Cardiovascular: regular rate and rhythm, normal peripheral perfusion Respiratory: Lungs CTA, respirations non labored Extremities: no deformity, no trauma Neurological: oriented x 4, LOC appropriate for age, CN II-XII intact, motor strength equal & normal bilaterally, speech normal Assessment/Plan 1. Loud snoring (R06.83: Snoring) pt c/o complaining that her snoring is getting worse. will order home sleep study through [facility]. pt thinks it has gotten worse since gaining 20 pounds will order ozempic through [facility]. RTC 4 weeks 2. Daytime somnolence (R40.0: Somnolence) see above 3. Sleep disorder (G47.9: Sleep disorder, unspecified) see above 4. Weight gain (R63.5: Abnormal weight gain) will start ozempic through [employer] [facility] [employer] 5. BMI 34.0-34.9,adult (Z68.34: Body mass index [BMI] 34.0-34.9, adult) BMI education complete 6. Non-smoker (Z78.9: Other specified health status) continue not smoking Ordered: meloxicam, 7.5 mg = 1 tab(s), Oral, Daily, # 30 tab(s), Refills(s) 0, Pharmacy: [id number], 084.2, cm, 04/06/23 11:51:00 EST, Height/Length Dosing, 89, kg, 04/06/23 11:51:00 EST, Weight Dosing Orders: methylPREDNISolone, = 1 packet(s), Oral, Once, as directed on package labeling, # 21 tab(s), Refills(s) 0, [id number], 162, cm, 05/05/23 11:47:00 EST, Height/Length Dosing, 90, kg, 05/05/23 11:47:00 EST, Weight Dosing semaglutide, 0.25 mg, SubCutaneous, qWeek, # 4 EA, Refills(s) 0, [id number], 162, cm, 05/05/23 11:47:00 EST, Height/Length Dosing, 90, kg, 05/05/23 11:47:00 EST, Weight Dosing Follow-up No qualifying data available Problem List/Past Medical History Ongoing Abnormal x-ray of cervical spine Carpal tunnel syndrome, bilateral Daytime somnolence Dysuria Encounter for weight management Frequent urination Injury of left little finger Kidney stone Left shoulder pain Loud snoring Microhematuria Neck pain Nocturia Sleep disorder Ureterovesical junction (UVJ) obstruction Urinary urgency Weight gain Historical No qualifying data Procedure/Surgical History Removal of stent (01/11/2019), Cystoscopic laser lithotripsy of ureteric calculus (01/09/2019), diagnostic laparoscopy, bilateral salpingectomy with removal of hydrosalpinx, lysis of adhesions, diagnostic hysteroscopy, endometrial ablation (01/16/2015), Cholecystectomy. Medications gabapentin 300 mg Cap, 300 mg= 1 cap(s), Oral, BID levothyroxine 50 mcg (0.05 mg) Tab, 50 mcg= 1 tab(s), Oral, Daily Ozempic, 0.3 mg, SubCutaneous, qWeek Allergies penicillins (lips blue) sulfamethoxazole (rash) Social History Alcohol - Denies Alcohol Use, 01/05/2015 Substance Abuse - Denies Substance Abuse, 01/05/2015 Tobacco - Denies Tobacco Use, 01/05/2015 Never (less than 100 in lifetime) Tobacco Use:. Never Smokeless Tobacco Use:. Household tobacco concerns: No., 06/13/2023 Family History Family history is negative Immunizations Vaccine Date Status Comments SARS-CoV-2 (COVID-19) mRNA BNT-162b2 vax 02/16/2021 Recorded 2022-10-17: TPV40 SARS-CoV-2 (COVID-19) mRNA BNT-162b2 vax 10/04/2020 Recorded 2022-10-17: TPV40 Normal [facility] Comment on above: Result Comment: Elec tronically Signed By: Sonam Bertrand\.br\Date and Time Signed: 06/13/23 10:52 EST Physician Orderon 06-13-2023 Physician Order [id number] #1.00TIFF [facility] Retail - Clinical Noteon Retail - Clinical Note [id number] #1.00TIFF [facility] Consultation Noteon 06-02-19 Consultation Note [id number] #1.00TIFF [facility] Physician Referralon 024 Physician Referral [id number] #1.00TIFF [facility] RAD - MISCon 05-08-2023 RAD - MISC [id number] #1.00TIFF [facility] Ambulatory Visit Summaryon 0 05-05-2023 Ambulatory Visit Summary BONILLA TAVERA :1975 Visit Date:05/05/2023 Ambulatory Visit Instructions Your Diagnosis Injury of left little finger BMI 34.0-34.9,adult Non-smoker Left shoulder pain Neck pain Your Care Team Attending Physician - Sonam Bertrand Primary Care Physician - Sonam Bertrand This Is Your Medications List levothyroxine (levothyroxine 50 mcg (0.05 mg) Tab) meloxicam (meloxicam 7.5 mg Tab) semaglutide (Wegovy (0.25 mg dose) subcutaneous solution) Procedures Performed Removal of stent (01/11/2019), Cystoscopic laser lithotripsy of ureteric calculus (01/09/2019), diagnostic laparoscopy, bilateral salpingectomy with removal of hydrosalpinx, lysis of adhesions, diagnostic hysteroscopy, endometrial ablation (01/16/2015), Cholecystectomy. Discharge Vitals Heart Rate (Peripheral) 96 Respiratory Rate 18 Blood Pressure 118/80 Height 162 cm Height 64 in Weight 90.0 kg Weight 198 lb BMI 34.29 What to do next Someone Will Contact You Regarding These Appointments [facility] [place], [place] Management, [facility]- pain management, 05/05/23 12:05:00 EST, BMI 34.0-34.9,adult Invalid Interpretation Code Left shoulder pain [facility] Family Medicine Office/Clini c Noteon 05-05-2023 Family Medicine Office/Clinic Note HPI Staff Bonilla is a 48 year old female presenting for acute visit Pain characteristics: Pain location: left hand pinky Intensity:6/10 with use Onset: 1 day ago Medication used: ice, ibuprofen Pt states she jammed her pinky Onset 1 year ago has been having bilateral hands joints aching with bilateral cubital fossa pain. Does have numbness and tingling in bilateral hands. Pain is aching constant History of Present Illness pt c/o left pinky finger injury and pain. also having TANNER carpal tunnel symptoms Review of Systems PHQ Score Initial Depression Screen Score: 0 SCORE ROS - Provider Constitutional: no fever, no chills, no sweats, no fatigue Respiratory: no shortness of breath, no cough, no orthopnea, no wheezing. Cardiovascular: no chest pain, no palpitations, no edema. Neurologic: no headache, no dizziness, no numbness, no weakness. left pinky finger bruised and painful, TANNER lower arms, wrist and into fingers painful and tingling worse at night Physical Exam Vitals & Measurements HR: 96(Peripheral) RR: 18 BP: 118/80 SpO2: 99% HT: 64 in HT: 162 cm WT: 90.0 kg WT: 198 lb BMI: 34.29 General: alert, no acute distress ENMT: oral mucosa moist, no pharyngeal erythema or exudate Cardiovascular: regular rate and rhythm, normal peripheral perfusion Respiratory: Lungs CTA, respirations non labored Extremities: no deformity, no trauma Neurological: oriented x 4, LOC appropriate for age, CN II-XII intact, motor strength equal & normal bilaterally, speech normal negative phalens test, positive tinels test Assessment/Plan 1. Injury of left little finger (S69.92XA: Unspecified injury of left wrist, hand and finger(s), initial encounter) will order xray to be done at [facility]. 2. Left shoulder pain (M25.512: Pain in left shoulder) still needs pain management referral Ordered: [facility] [place] Ref[place] 3. Neck pain (M54.2: Cervicalgia) needs pain management referral. Ordered: dextromethorphan, 15 mg = 5 mL, Oral, q4hr, PRN for cough, # 120 mL, Refills(s) 0, Pharmacy: [facility]acy #[id number], 162.2, cm, 04/12/23 16:52:00 EST, Height/Length Dosing, 89, kg, 04/12/23 16:52:00 EST, Weight Dosing semaglutide, 0.25 mg, SubCutaneous, qWeek, # 4 EA, Refills(s) 0, Pharmacy: [facility]pharmacy #[id number], 162.2, cm, 04/12/23 16:52:00 EST, Height/Length Dosing, 89, kg, 04/12/23 16:52:00 EST, Weight Dosing semaglutide, 0.25 mg, SubCutaneous, qWeek, # 4 EA, Refills(s) 0, Pharmacy: [facility]/pharmacy #[id number], 162, cm, 05/05/23 11:47:00 EST, Height/Length Dosing, 90, kg, 05/05/23 11:47:00 EST, Weight Dosing [facility] [place] Ref[place] 4. Abnormal x-ray of cervical spine (R93.7: Abnormal findings on diagnostic imaging of other parts of musculoskeletal system) will refer to pain managment Ordered: dextromethorphan, 15 mg = 5 mL, Oral, q4hr, PRN for cough, # 120 mL, Refills(s) 0, Pharmacy: [facility]/pharmacy #[id number], 162.2, cm, 04/12/23 16:52:00 EST, Height/Length Dosing, 89, kg, 04/12/23 16:52:00 EST, Weight Dosing semaglutide, 0.25 mg, SubCutaneous, qWeek, # 4 EA, Refills(s) 0, [id number], 162.2, cm, 04/12/23 16:52:00 EST, Height/Length Dosing, 89, kg, 04/12/23 16:52:00 EST, Weight Dosing semaglutide, 0.25 mg, SubCutaneous, qWeek, # 4 EA, Refills(s) 0, [id number], 162, cm, 05/05/23 11:47:00 EST, Height/Length Dosing, 90, kg, 05/05/23 11:47:00 EST, Weight Dosing 5. Carpal tunnel syndrome, bilateral (G56.03: Carpal tunnel syndrome, bilateral upper limbs) TANNER lower arm wrist and fingers with burning and tingling. +TInel's sign. pt just started a new job so is not able to see surgeon at this time. encouraged her to wear braces. 6. Insulin resistance (E88.819: Insulin resistance, unspecified) wegovy sent to pharmacy Ordered: semaglutide, 0.25 mg, SubCutaneous, qWeek, # 4 EA, Refills(s) 0, [id number], 162.2, cm, 04/12/23 16:52:00 EST, Height/Length Dosing, 89, kg, 04/12/23 16:52:00 EST, Weight Dosing semaglutide, 0.25 mg, SubCutaneous, qWeek, # 4 EA, Refills(s) 0, [id number], 162, cm, 05/05/23 11:47:00 EST, Height/Length Dosing, 90, kg, 05/05/23 11:47:00 EST, Weight Dosing 7. BMI 34.0-34.9,adult (Z68.34: Body mass index [BMI] 34.0-34.9, adult) BMI education complete Ordered: phentermine, 37.5 mg = 1 tab(s), Oral, Daily, # 30 tab(s), Refills(s) 0, Pharmacy: [facility], 162.2, cm, 03/15/23 16:46:00 EST, Height/Length Dosing, 88.3, kg, 03/15/23 16:46:00 EST, Weight Dosing [facility] [place] Ref[place] 8. Non-smoker (Z78.9: Other specified health status) continue not smoking Ordered: phentermine, 37.5 mg = 1 tab(s), Oral, Daily, # 30 tab(s), Refills(s) 0, Pharmacy: [facility], 162.2, cm, 03/15/23 16:46:00 EST, Height/Length Dosing, 88.3, kg, 03/15/23 16:46:00 EST, Weight Dosing [facility] [place] Ambulatory Referral Orders: methylPREDNISolone, = 1 packet(s), Oral, Once, as directed on package labeling, # 21 tab(s), Refi (more content not included)... [facility] Comment on above: Result Comment: Elec tronically Signed By: Sonam Bertrand\.br\Date and Time Signed: 05/05/23 13:41 EST Physician Orderon 05-05-2023 Physician Order [id number]# 1.00TIFF [facility] Provider Letteron 05-05-2023 Provider Letter May 05, 2023 BONILLA TAVERA [address] [place] [id number] : 1975 To Whom It May Concern, Please excuse above patient from work. Date of Illness: From: 05/05/2023 To: 05/05/2023 May Return to Work On: 05/05/2023 Sincerely, MELBA Grady [place] [id number] [facility] Ambulatory Visit Summaryon 1 06-13-2022 Ambulatory Visit Summary BONILLA TAVERA :1975 Visit Date:04/12/2023 Ambulatory Visit Instructions Your Diagnosis BMI 33.0-33.9,adult Class 1 obesity due to excess calories in adult Nonsmoker Your Care Team Attending Physician - Sonam Bertrand Primary Care Physician - Frankie CERTIFIED RETINAL ANGIOGRAPHER, Sonam L This Is Your Medications List levothyroxine (levothyroxine [...] choosing us for your care. [facility] Family Medicine Office/Clini c Noteon 04-12-2023 Family Medicine Office/Clinic Note HPI Staff [...] day(s), # 21 tab(s), Refills(s) 0, Pharmacy: [facility]/pharmacy #[id number], 162.2, cm, 04/06/23 11:51:00 EST, Height/Length Dosing, 89, kg, 04/06/23 11:51:00 EST, Weight Dosing 3. BMI 33.0-33.9,adult (Z68.33: Body mass index [BMI] 33.0-33.9, adult) BMI education complete Ordered: methylPREDNISolone, = 1 packet(s), Oral, As Directed, as directed on package labeling, X 6 day(s), # 21 tab(s), Refills(s) 0, [id number], 162.2, cm, 04/06/23 11:51:00 EST, Height/Length [...] day(s), # 21 tab(s), Refills(s) 0, [id number], 162.2, cm, 04/06/23 11:51:00 EST, Height/Length [...] BNT-162b2 vax 10/04/2020 Recorded 2022-10-17: TPV40 Normal [facility] Comment on above: Result Comment: Elec tronically Signed By: Sonam Bertrand\.br\Date and Time Signed: 04/12/23 17:05 EST Physician Referralon 023 Physician Referral [id number]#1.00TIFF [facility] Ambulatory Visit Summaryon 1 06-07-2022 Ambulatory Visit Summary LIANGBONILLA :1975 Visit Date:04/06/2023 Ambulatory Visit Instructions Your [...] 5:00 PM EST With: Sonam Bertrand Where: [facility] [place] Normal [facility] Medicine Office/Clini c Noteon 04-06-2023 Family Medicine Office/Clinic [...] Daily, # 30 tab(s), Refills(s) 0, Pharmacy: [facility]/pharmacy #[id number], 162.2, cm, 04/06/23 11:51:00 EST, Height/Length Dosing, 89, kg, 04/06/23 11:51:00 EST, Weight Dosing methylPREDNISolone, = 1 packet(s), Oral, As Directed, as directed on package labeling, X 6 day(s), # 21 tab(s), Refills(s) 0, [id number], 162.2, cm, 04/06/23 11:51:00 EST, Height/Length Dosing, 89, kg, 04/06/23 11:51:00 EST, Weight Dosing 2. Neck pain (M54.2: Cervicalgia) x ray order provided. to be done at [facility] Ordered: meloxicam, 7.5 mg = 1 tab(s), Oral, Daily, # 30 tab(s), Refills(s) 0, [id number], 162.2, cm, 04/06/23 11:51:00 EST, Height/Length Dosing, 89, kg, 04/06/23 11:51:00 EST, Weight Dosing methylPREDNISolone, = 1 packet(s), Oral, As Directed, as directed on package labeling, X 6 day(s), # 21 tab(s), Refills(s) 0, [id number], 162.2, cm, 04/06/23 11:51:00 EST, Height/Length Dosing, 89, kg, 04/06/23 11:51:00 EST, Weight Dosing 3. BMI 33.0-33.9,adult (Z68.33: Body mass index [BMI] 33.0-33.9, adult) HI education complete Ordered: meloxicam, 7.5 mg = 1 tab(s), Oral, Daily, # 30 tab(s), Refills(s) 0, [id number], 162.2, cm, 04/06/23 11:51:00 EST, Height/Length Dosing, 89, kg, 04/06/23 11:51:00 EST, Weight Dosing methylPREDNISolone, = 1 packet(s), Oral, As Directed, as directed on package labeling, X 6 day(s), # 21 tab(s), Refills(s) 0, [id number], 162.2, cm, 04/06/23 11:51:00 EST, Height/Length Dosing, 89, kg, 04/06/23 11:51:00 EST, Weight Dosing 4. Non-smoker (Z78.9: Other specified health status) continue not smoking Ordered: meloxicam, 7.5 mg = 1 tab(s), Oral, Daily, # 30 tab(s), Refills(s) 0, [id number], 162.2, cm, 04/06/23 11:51:00 EST, Height/Length Dosing, 89, kg, 04/06/23 11:51:00 EST, Weight Dosing methylPREDNISolone, = 1 packet(s), Oral, As Directed, as directed on package labeling, X 6 day(s), # 21 tab(s), Refills(s) 0, [id number], 162.2, cm, 04/06/23 11:51:00 EST, Height/Length [...] Denies Alcoho (more content not included)... Normal [facility] Comment on above: Result Comment: Elec tronically Signed By: Frankie PEPE, Sonam Cool\.br\Date and Time Signed: 04/06/23 12:25 EST Physician Orderon 04-06-2023 Physician Order [id number] #1.00TIFF [facility] Ambulatory Visit Summaryon 1 05-15-2022 Ambulatory Visit Summary BONILLA TAVERA :1975 Visit Date:03/15/2023 Ambulatory Visit Instructions Your Diagnosis Encounter for weight management Urinary frequency BMI 33.0-33.9,adult Non-smoker Class 1 obesity due to excess calories in adult Tests Performed Urnls Dip Stick Auto w/o Microscopy POC 49232 Your Care Team Attending Physician - Sonam [...] 5:00 PM EST With: Sonam Bertrand Where: [facility] Family Medicine Office/Clini c Noteon 03-15-2023 Family [...] Daily, # 30 tab(s), Refills(s) 0, Pharmacy: [facility], 162.2, cm, 02/14/23 10:52:00 EDT, Height/Length Dosing, 90.6, kg, 02/14/23 10:52:00 EDT, Weight Dosing phentermine, 37.5 mg = 1 tab(s), Oral, Daily, # 30 tab(s), Refills(s) 0, Pharmacy: [facility], 162.2, cm, 03/15/23 16:46:00 EST, Height/Length Dosing, 88.3, kg, 03/15/23 16:46:00 EST, Weight Dosing 2. Urinary frequency (R35.0: Frequency of micturition) pt was having uti symptoms had some left over meds and took them urinalysis negative in office today. Ordered: Urnls Dip Stick Auto w/o Microscopy POC 95195 3. BMI 33.0-33.9,adult (Z68.33: Body mass index [BMI] 33.0-33.9, adult) bmi education complete 4. Non-smoker (Z78.9: Other specified health status) continue not smoking Ordered: phentermine, 37.5 mg = 1 tab(s), Oral, Daily, # 30 tab(s), Refills(s) 0, Pharmacy: [facility], 162.2, cm, 02/14/23 10:52:00 EDT, Height/Length Dosing, 90.6, kg, 02/14/23 10:52:00 EDT, Weight Dosing phentermine, 37.5 mg = 1 tab(s), Oral, Daily, # 30 tab(s), Refills(s) 0, Pharmacy: [facility], 162.2, cm, 03/15/23 16:46:00 EST, Height/Length Dosing, 88.3, kg, 03/15/23 16:46:00 EST, Weight Dosing Class 1 obesity due to excess calories in adult (E66.09: Other obesity due to excess calories) Ordered: phentermine, 37.5 mg = 1 tab(s), Oral, Daily, # 30 tab(s), Refills(s) 0, Pharmacy: [facility], 162.2, cm, 02/14/23 10:52:00 EDT, Height/Length Dosing, 90.6, kg, 02/14/23 10:52:00 EDT, Weight Dosing phentermine, 37.5 mg = 1 tab(s), Oral, Daily, # 30 tab(s), Refills(s) 0, Pharmacy: [facility], 162.2, cm, 03/15/23 16:46:00 EST, Height/Length [...] Lab Results (more content not included)... Normal [facility] Comment on above: Result Comment: Elec [...] 3:20 PM EST With: Sonam Bertrand Where: [facility] Normal [facility] Family Medicine Office/Clini c Noteon 02-14-2023 Family Medicine Office/Clinic Note HPI Staff Bonilla is a 47 year old female presenting to [facility] Establish Care: History: hypothyroid, Any previous diagnosis: [...] Daily, # 30 tab(s), Refills(s) 0, Pharmacy: [facility], 162.2, cm, 02/14/23 10:52:00 EDT, Height/Length Dosing, 90.6, kg, 02/14/23 10:52:00 EDT, Weight Dosing 2. BMI 34.0-34.9,adult (Z68.34: Body mass index [BMI] 34.0-34.9, adult) BMI education complete Ordered: phentermine, 37.5 mg = 1 tab(s), Oral, Daily, # 30 tab(s), Refills(s) 0, Pharmacy: [facility], 162.2, cm, 02/14/23 10:52:00 EDT, Height/Length Dosing, 90.6, kg, 02/14/23 10:52:00 EDT, Weight Dosing 3. Class 1 obesity due to excess calories in adult (E66.09: Other obesity due to excess calories) see above Ordered: phentermine, 37.5 mg = 1 tab(s), Oral, Daily, # 30 tab(s), Refills(s) 0, Pharmacy: [facility], 162.2, cm, 02/14/23 10:52:00 EDT, Height/Length Dosing, 90.6, kg, 02/14/23 10:52:00 EDT, Weight Dosing 4. Nonsmoker (Z78.9: Other specified health status) continue not smoking Ordered: phentermine, 37.5 mg = 1 tab(s), Oral, Daily, # 30 tab(s), Refills(s) 0, Pharmacy: [facility], 162.2, cm, 02/14/23 10:52:00 EDT, Height/Length [...] BNT-162b2 vax 10/04/2020 Recorded 2022-10-17: TPV40 Normal [facility] Comment on above: Result Comment: Elec tronically Signed By: Sonam Bertrand\.br\Date and Time Signed: 02/14/23 11:29 EDT Medication Consenton 023 Medication Consent [id number] #1.00TIFF Normal [facility] RESPIRATORY PANEL PLUSon Adenovirus Not detected Normal NOT DETECTED [facility] Comment on above: Performed By: #### R SPLUS #### [facility] [address] [place] [address] [address] Isidoro Mckeon Parapertusis Not detected Normal NOT DETECTED [facility] Comment on above: Performed By: #### R SPLUS #### [facility] [address] [place] [address] [address] Isidoro Mckeon Pertussis Not detected Normal NOT DETECTED [facility] Comment on above: Performed By: #### R SPLUS #### [facility] [address] [place] [address] Dr. Isidoro Bryant Chlamydia Pneumoniae Not detected Normal NOT DETECTED [facility] Comment on above: Performed By: #### R SPLUS #### [facility] [address] [place] [address] Dr. Isidoro Bryant Coronavirus [id number] Not detected Normal NOT DETECTED [facility] Comment on above: Performed By: #### R SPLUS #### [facility] [address] [place] [address] Dr. Isidoro Bryant Coronavirus HKU1 Not detected Normal NOT DETECTED [facility] Comment on above: Performed By: #### R SPLUS #### [facility] [facility] [address] [place] [address] Dr. Isidoro Bryant Coronavirus NL63 Not detected Normal NOT DETECTED [facility] Comment on above: Performed By: #### R SPLUS #### [facility] [address] [place] [address] Dr. Isidoro Bryant Coronavirus OC43 Not detected Normal NOT DETECTED [facility] Comment on above: Performed By: #### R SPLUS #### [facility] [address] [place] [address] Dr. Isidoro Bryant Influenza A H1 2009 Not detected Normal NOT DETECTED [facility] Comment on above: Performed By: #### R SPLUS #### [facility] [address] [place] [address] Dr. Isidoro Bryant Influenza A H3 Not detected Normal NOT DETECTED The [facility] Comment on above: Performed By: #### R SPLUS #### [facility] [address] [place] [address] Dr. Isidoro Bryant Influenza B Not detected Normal NOT DETECTED The [facility] Comment on above: Performed By: #### R SPLUS #### [facility] [address] [place] [address] Dr. Isidoro Bryant Metapneumovirus Detected Abnormal NOT DETECTED The [facility] Comment on above: Performed By: #### R SPLUS #### [facility] [address] [place] [address] Dr. Isidoro Bryant Mycoplas. Pneumoniae Not detected Normal NOT DETECTED [facility] Comment on above: Performed By: #### R SPLUS #### [facility] [address] [place] [address] Dr. Isidoro Bryant Parainfluenza 1 Not detected Normal NOT DETECTED The [facility] Comment on above: Performed By: #### R SPLUS #### [facility] [address] [place] [address] Dr. Isidoro Bryant Parainfluenza 2 Not detected Normal NOT DETECTED The [facility] Comment on above: Performed By: #### R SPLUS #### [facility] [address] [place] [address] Dr. Isidoro Bryant Parainfluenza 3 Not detected Normal NOT DETECTED [facility] Comment on above: Performed By: #### R SPLUS #### [facility] [address] [place] [address] Dr. Isidoro Bryant Parainfluenza 4 Not detected Normal NOT DETECTED [facility] Comment on above: Performed By: #### R SPLUS #### [facility] [address] [place] [address] Dr. Isidoro Bryant Rhino/Enterovirus Not detected Normal NOT DETECTED [facility] Comment on above: Performed By: #### R SPLUS #### [facility] [address] [place] [address] Dr. Isidoro Bryant RP2 Header 1 RESPIRATORY PANEL: VIRUSES Normal [facility] Comment on above: Performed By: #### R SPLUS #### [facility] [address] [place] [address] Dr. Isidoro Bryant RP2 Header 2 RESPIRATORY PANEL: BACTERIA Normal [facility] Comment on above: Performed By: #### R SPLUS #### [facility] [address] [place] [address] Dr. Isidoro Bryant RSV Not detected Normal NOT DETECTED [facility] Comment on above: Performed By: #### R SPLUS #### [facility] [address] [place] [address] Dr. Isidoro Bryant SARS-CoV-2 (COVID-19) RNA SHEKHAR+probe Ql (Unsp spec) Not detected Normal NOT DETECTED [facility] Comment on above: Performed By: #### R SPLUS #### [facility] [address] [address] [address] Isidoro Bryant Encounters Encounter Date Encounter Type Care Provider Facility Start: 06-13-2023 End: 06-14-2023 ambulatory Sonam L Frankie [facility]: [facility] Start: 05-05-2023 End: 05-06-2023 ambulatory Sonam L Frankie Facility: [facility] Start: 04-12-2023 End: 04-13-2023 ambulatory Sonam L Frankie Facility: [facility] Start: 04-06-2023 End: 04-07-2023 ambulatory Sonam L Frankie Facility: [facility] Start: 03-15-2023 End: 03-16-2023 ambulatory Sonam L Frankie Facility: [facility] Start: 02-14-2023 End: 02-15-2023 ambulatory Sonam L Frankie Facility: [facility] Start: 01-30-2023 End: 01-31-2023 ambulatory Sonam L Frankie Facility: [facility] Start: 10-19-2022 End: 10-20-2022 ambulatory Sonam L Frankie Facility: [facility] Start: 10-13-2022 ambulatory Sonam Frankie Facility:[facility] Start: 04-12-2021 End: 04-12-[address] GIOVANI LERMA Facility:[facility] Payers Date Payer Category Payer Unknown [id number] 1975 Unknown [id number] 2.16.84 [id number] 1975 Unknown [id number] 2.16.8 [id number] 1975 Unknown [id number] 2.16.8 [id number] 1977 Unknown [id number] 2.16.8 [id number] 1977 Unknown [id number] 2.16.8 [id number] 1977 Unknown [id number] 2.16.8 [id number] 1977 Unknown [id number] 2.16.8 [id number] 1977 Unknown [id number] 2.16.8 [id number] 1977 Unknown [id number] 2.16.8 [id number] 1959 Unknown [id number] Summary Purpose Family History No Family History Records FoundNo Family History Records Found Advance Directives No Advanced Directives Records FoundNo Advanced Directives Records Found Additional Source Comments INFORMATION SOURCE (unrecogn ized section and content) DATE CREATED AUTHOR 04/18/2021 [facility] DATE CREATED AUTHOR AUTHOR'S ORGANIZ ATION 06/16/2023 [facility] FOR RECORDS PERTAINING TO PATIENTS WHO ARE [...] BE BASED ON THE PRIMARY CLINICAL RECORDS. [employer] provides no warranty or guarantee of the accuracy or completeness of information in this document.
--- NOTE | 2023-06-29 08:14 | P.CN_ITS ---
Consult Note: HPI Data of Consult Patient: new to practice Requesting Physician: Lexi Ashby NP Primary Care Provider: ANGELI HUFFMAN Consult Narrative Reason for consult: neck pain and BUE pain Narrative: Teresa anaya pleasant 48 year female presents for evaluation and management of chronic neck pain and bilateral upper extremity pain. Patient stopped PT as it increased her pain. Pain most significant in left shoulder and upper arm, denies neck pain. Today pain 2-3/10 increases to 9/10 at times. patient reports pain is a deep ache and sharp shooting stabbing pain in left shoulder and upper arm. Patient denies weakness. Denies headaches. Patient reports random onset but sleeping on her left side increases the nerve pain. Patient finds mild benefit from ibuprofen. Found mild benefit from first medrol dose pack from PCP, no relief from second. Failed PT. Gabapentin caused drowsiness and was not effective. cc:: CC: Lexi Ashby NP Review of Systems ROS Status of ROS 10 or more systems reviewed and unremark able except as noted in history and below Musculoskeletal Reports: extremity pain Meds Home Medications and Allergies Home Medications Medication Instructions Recorded Confirmed Type gabapentin 300 mg tablet 300 mg PO BID 06/07/23 06/07/23 History levothyroxine 50 mcg capsule 50 mcg PO DAILY 06/07/23 06/07/23 History meloxicam 15 mg tablet 15 mg PO DAILY 06/07/23 06/07/23 History Allergies Allergy/AdvReac Type Severity Reaction Status Date / Time Penicillins Allergy Verified 06/07/23 10:38 Sulfa (Sulfonamide Allergy Verified 06/07/23 10:38 Antibiotics) Exam Constitutional Documenting provider has reviewed patient's vital signs: yes Common normals: no apparent distress, oriented x3, healthy appearing, alert and well nourished General appearance: cooperative [facility] Common normals: normocephalic, hearing grossly normal bilaterally and moist oral mucous membranes Head and scalp: normocephalic Eye Common normals: PERRL Pupil: PERRL Neck & C-Spine Common normals: full ROM General: normal visual inspection Cervical spine: cervical ROM normal Other: negative spurlings sensation intact BUE, strength 5/5 BUE Chest Common normals: inspection of chest normal Respiratory Common normals: normal respiratory effort, no retractions and no use of accessory muscles Back & Pelvis Common normals: thoracic and lumbar spine normal to inspection, thoraco-lumbar ROM normal and straight leg raise negative bilaterally Extremity Common normals: normal to inspection and full ROM Left upper extremity: shoulder joint Other: pain with cross body adduction, empty can test, and posterior lift off. pain following suprascapular nerve and axillary nerve, worsened with palpation bilateral mildly positive phalens test, negative finklestein and tinnels Neuro Common normals: oriented x3, CN's II-XII intact bilaterally, moves all extremities, no focal motor deficits, no sensory deficits noted and deep tendon reflexes 2+ bilaterally Sensorium/orientation: alert Motor exam: strength 5/5 throughout and no movement abnormalities noted Psych Common normals: mental status grossly normal, thought process normal, cooperative, affect normal, speech normal and activity/motor behavior normal Speech: normal speech Thought process: normal thought process Assessment and Plan Assessment and Plan (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
== END 2023-06-29 08:11 | disposition home or self-care (01) ==
LOC: PM 08:10
PROVIDERS: PCP Nurse Practitioner; Visit Provider Nurse Practitioner
DX: G58.8 Other specified mononeuropathies (principal); M47.812 Spondylosis without myelopathy or radiculopathy, cervical region; G56.00 Carpal tunnel syndrome, unspecified upper limb; M54.12 Radiculopathy, cervical region; M48.02 Spinal stenosis, cervical region
CPT/HCPCS: G0463

== ENCOUNTER 2023-07-03 10:57 | Outpatient (OUT) | payer BC, SELFPAY ==
--- OUTSIDE RECORDS SUMMARY | 2023-07-03 11:10 | XMS_ITS | CCD ---
Author Name Unknown Address [facility] [address] [place] [id number] Organization [facility] Care Team Providers Care Photonics Engineer Name Role Phone RAINE, DR MATUTE Attending [...] Translations: [penicillins] Drug allergy (disorder) 09-30-2012 [facility] Repository (1 source) Sulfonamides (Antibiotic) Drug allergy (disorder) 09-30-2012 [facility] Repository (1 source) Acetaminophen / oxyCODONE; Translations: [Percocet 5/325] Drug Allergy [facility] Repository (1 source) Sulfamethoxazole; Translations: [sulfamethoxazole] Drug Allergy [facility] Repository Problems Problem Classification Problem Date Documented Da te Episodic/Chronic Malaise and fatigue (4 sources) Other fatigue; Translations: [OTHER FATIGUE] Onset: 04-12-2021 Episodic Unclassified (1 source) COUGH, UNSPECIFIED; Translations: [COUGH, UNSPECIFIED] Onset: 04-18-2021 Results Test Name Value Interpretation Reference Range Facility Consultation Noteon 06-30-19 Consultation Note [id number] #1.00TIFF Normal [facility] Family Medicine Office/Clini c Noteon 06-13-2023 Family [...] options she is interested in Ozempic through [employer]. History of Present Illness pt presents today [...] worse. will order home sleep study through [facility]. pt thinks it has gotten worse since gaining 20 pounds will order ozempic through [employer]. RTC 4 weeks 2. Daytime somnolence (R40.0: Somnolence) see above 3. Sleep disorder (G47.9: Sleep disorder, unspecified) see above 4. Weight gain (R63.5: Abnormal weight gain) will start ozempic through [employer] 5. BMI 34.0-34.9,adult (Z68.34: Body mass index [BMI] 34.0-34.9, adult) BMI education complete 6. Non-smoker (Z78.9: Other specified health status) continue not smoking Ordered: meloxicam, 7.5 mg = 1 tab(s), Oral, Daily, # 30 tab(s), Refills(s) 0, [id number] 162.2, cm, 04/06/23 11:51:00 EST, Height/Length Dosing, 89, kg, 04/06/23 11:51:00 EST, Weight Dosing Orders: methylPREDNISolone, = 1 packet(s), Oral, Once, as directed on package labeling, # 21 tab(s), Refills(s) 0, [id number], 162, cm, 05/05/23 11:47:00 EST, Height/Length Dosing, 90, kg, 05/05/23 11:47:00 EST, Weight Dosing semaglutide, 0.25 mg, SubCutaneous, qWeek, # 4 EA, Refills(s) 0, [id number], 162, cm, 05/05/23 11:47:00 EST, Height/Length [...] mRNA BNT-162b2 vax 10/04/2020 Recorded 2022-10-17: TPV40 [facility] Comment on above: Result Comment: Elec tronically Signed By: Sonam Bertrand\.br\Date and Time Signed: 06/13/23 10:52 EST Physician Orderon 06-13-2023 Physician Order [id number] #1.00TIFF [facility] Retail - Clinical Noteon Retail - Clinical Note [id number] #1.00TIFF [facility] Consultation Noteon 06-02-19 Consultation Note [id number] #1.00TIFF [facility] Physician Referralon 024 Physician Referral [id number] #1.00TIFF [facility] RAD - MISCon 05-08-2023 [facility] - MISC [id number] #1.00TIFF [facility] Ambulatory Visit Summaryon 0 05-05-2023 Ambulatory Visit Summary LIANG BONILLA Segovia :1975 Visit Date:05/05/2023 Ambulatory Visit Instructions Your [...] Someone Will Contact You Regarding These Appointments [facility] [place] [facility]erral, Pain Management, [facility]- pain management, 05/05/23 12:05:00 EST, BMI 34.0-34.9,adult Invalid Interpretation Code Left shoulder pain [facility] Medicine Office/Clini c Noteon 05-05-2023 Family Medicine [...] will order xray to be done at [facility]. 2. Left shoulder pain (M25.512: Pain in left shoulder) still needs pain management referral Ordered: [facility] External Ambulatory Referral 3. Neck pain (M54.2: Cervicalgia) needs pain management referral. Ordered: dextromethorphan, 15 mg = 5 mL, Oral, q4hr, PRN for cough, # 120 mL, Refills(s) 0, [id number], 162.2, cm, 04/12/23 16:52:00 EST, Height/Length Dosing, 89, kg, 04/12/23 16:52:00 EST, Weight Dosing semaglutide, 0.25 mg, SubCutaneous, qWeek, # 4 EA, Refills(s) 0, Pharm[id number], 162.2, cm, 04/12/23 16:52:00 EST, Height/Length Dosing, 89, kg, 04/12/23 16:52:00 EST, Weight Dosing semaglutide, 0.25 mg, SubCutaneous, qWeek, # 4 EA, Refills(s) 0, Pharmacy: [facility]/pharmacy [facility]177, 162, cm, 05/05/23 11:47:00 EST, Height/Length Dosing, 90, kg, 05/05/23 11:47:00 EST, Weight Dosing [facility] External Ambulatory Referral 4. Abnormal x-ray of cervical spine (R93.7: Abnormal findings on diagnostic imaging of other parts of musculoskeletal system) will refer to pain managment Ordered: dextromethorphan, 15 mg = 5 mL, Oral, q4hr, PRN for cough, # 120 mL, Refills(s) 0, Pharmacy: [facility]/pharmacy #[id number], 162.2, cm, 04/12/23 16:52:00 EST, Height/Length Dosing, 89, kg, 04/12/23 16:52:00 EST, Weight Dosing semaglutide, 0.25 mg, SubCutaneous, qWeek, # 4 EA, Refills(s) 0, [id number], 162.2, cm, 04/12/23 16:52:00 EST, Height/Length Dosing, 89, kg, 04/12/23 16:52:00 EST, Weight Dosing semaglutide, 0.25 mg, SubCutaneous, qWeek, # 4 EA, Refills(s) 0, [id number], 162, cm, 05/05/23 11:47:00 EST, Height/Length [...] 6. Insulin resistance (E88.819: Insulin resistance, unspecified) [facility] sent to pharmacy Ordered: semaglutide, 0.25 mg, SubCutaneous, qWeek, # 4 EA, Refills(s) 0, [id number], 162.2, cm, 04/12/23 16:52:00 EST, Height/Length Dosing, 89, kg, 04/12/23 16:52:00 EST, Weight Dosing semaglutide, 0.25 mg, SubCutaneous, qWeek, # 4 EA, Refills(s) 0, [id number], 162, cm, 05/05/23 11:47:00 EST, Height/Length Dosing, 90, kg, 05/05/23 11:47:00 EST, Weight Dosing 7. BMI 34.0-34.9,adult (Z68.34: Body mass index [BMI] 34.0-34.9, adult) BMI education complete Ordered: phentermine, 37.5 mg = 1 tab(s), Oral, Daily, # 30 tab(s), Refills(s) 0, Pharmacy: [facility], 162.2, cm, 03/15/23 16:46:00 EST, Height/Length Dosing, 88.3, kg, 03/15/23 16:46:00 EST, Weight Dosing [facility] External Ambulatory Referral 8. Non-smoker (Z78.9: Other specified health status) continue not smoking Ordered: phentermine, 37.5 mg = 1 tab(s), Oral, Daily, # 30 tab(s), Refills(s) 0, Pharmacy: [facility], 162.2, cm, 03/15/23 16:46:00 EST, Height/Length Dosing, 88.3, kg, 03/15/23 16:46:00 EST, Weight Dosing [facility] Ambulatory Referral Orders: methylPREDNISolone, = 1 packet(s), Oral, Once, as directed on package labeling, # 21 tab(s), Refi (more content not included)... [facility] Comment on above: Result Comment: Elec tronically Signed By: Sonam Bertrand\.br\Date and Time Signed: 05/05/23 13:41 EST Physician Orderon 05-05-2023 Physician Order [id number]# 1.00TIFF [facility] Provider Letteron 05-05-2023 Provider Letter May 05, 2023 BONILLA TAVERA [address] [place] [address] : 1975 To Whom It May Concern, Please excuse above patient from work. Date of Illness: From: 05/05/2023 To: 05/05/2023 May Return to Work On: 05/05/2023 Sincerely, MELBA Grady [address] [address] [facility] Ambulatory Visit Summaryon 1 06-13-2022 Ambulatory Visit [...] choosing us for your care. Martha Arce [facility] Family Medicine Office/Clini c Noteon [...] day(s), # 21 tab(s), Refills(s) 0, Pharmacy: [id number], 162.2, cm, 04/06/23 11:51:00 EST, Height/Length Dosing, 89, kg, 04/06/23 11:51:00 EST, Weight Dosing 3. BMI 33.0-33.9,adult (Z68.33: Body mass index [BMI] 33.0-33.9, adult) BMI education complete Ordered: methylPREDNISolone, = 1 packet(s), Oral, As Directed, as directed on package labeling, X 6 day(s), # 21 tab(s), Refills(s) 0, Pharmacy: [facility]/pharmacy #6177, 162.2, cm, 04/06/23 11:51:00 EST, Height/Length [...] day(s), # 21 tab(s), Refills(s) 0, Pharmacy: [facility]/pharmacy #6177, 162.2, cm, 04/06/23 11:51:00 EST, Height/Length [...] mRNA BNT-162b2 vax 10/04/2020 Recorded 2022-10-17: TPV40 [facility] Comment on above: Result Comment: Elec tronically Signed By: Sonam Bertrand\.br\Date and Time Signed: 04/12/23 17:05 EST Physician Referralon 023 Physician Referral [id number]#1.00TIFF [facility] Ambulatory Visit Summaryon 1 06-07-2022 Ambulatory Visit Summary JEIMY TAVERAASHLYN Segovia :1975 Visit Date:04/06/2023 Ambulatory Visit Instructions Your [...] 5:00 PM EST With: Sonam Bertrand Where: [facility] Medicine [place] [facility] Medicine Office/Clini c Noteon 04-06-2023 Family Medicine [...] Daily, # 30 tab(s), Refills(s) 0, [id number], 162.2, cm, 04/06/23 11:51:00 EST, Height/Length Dosing, 89, kg, 04/06/23 11:51:00 EST, Weight Dosing methylPREDNISolone, = 1 packet(s), Oral, As Directed, as directed on package labeling, X 6 day(s), # 21 tab(s), Refills(s) 0, [id number], 162.2, cm, 04/06/23 11:51:00 EST, Height/Length Dosing, 89, kg, 04/06/23 11:51:00 EST, Weight Dosing 2. Neck pain (M54.2: Cervicalgia) x ray order provided. to be done at [facility] Ordered: meloxicam, 7.5 mg = 1 tab(s), Oral, Daily, # 30 tab(s), Refills(s) 0, [id number], 162.2, cm, 04/06/23 11:51:00 EST, Height/Length Dosing, 89, kg, 04/06/23 11:51:00 EST, Weight Dosing methylPREDNISolone, = 1 packet(s), Oral, As Directed, as directed on package labeling, X 6 day(s), # 21 tab(s), Refills(s) 0, [id number], 162.2, cm, 04/06/23 11:51:00 EST, Height/Length Dosing, 89, kg, 04/06/23 11:51:00 EST, Weight Dosing 3. BMI 33.0-33.9,adult (Z68.33: Body mass index [BMI] 33.0-33.9, adult) CT education complete Ordered: meloxicam, 7.5 mg = 1 tab(s), Oral, Daily, # 30 tab(s), Refills(s) 0, [id number], 162.2, cm, 04/06/23 11:51:00 EST, Height/Length Dosing, 89, kg, 04/06/23 11:51:00 EST, Weight Dosing methylPREDNISolone, = 1 packet(s), Oral, As Directed, as directed on package labeling, X 6 day(s), # 21 tab(s), Refills(s) 0, [facility], 162.2, cm, 04/06/23 11:51:00 EST, Height/Length Dosing, 89, kg, 04/06/23 11:51:00 EST, Weight Dosing 4. Non-smoker (Z78.9: Other specified health status) continue not smoking Ordered: meloxicam, 7.5 mg = 1 tab(s), Oral, Daily, # 30 tab(s), Refills(s) 0, [facility], 162.2, cm, 04/06/23 11:51:00 EST, Height/Length Dosing, 89, kg, 04/06/23 11:51:00 EST, Weight Dosing methylPREDNISolone, = 1 packet(s), Oral, As Directed, as directed on package labeling, X 6 day(s), # 21 tab(s), Refills(s) 0, [id number], 162.2, cm, 04/06/23 11:51:00 EST, Height/Length [...] - Denies Alcoho (more content not included)... [facility] Comment on above: Result Comment: Elec tronically Signed By: Sonam Bertrand\.br\Date and Time Signed: 04/06/23 12:25 EST Physician Orderon 04-06-2023 Physician Order [id number] #1.00TIFF [facility] Ambulatory Visit Summaryon 1 05-15-2022 Ambulatory Visit Summary BONILLA TAVERA :1975 Visit Date:03/15/2023 Ambulatory Visit Instructions Your Diagnosis Encounter for weight management Urinary frequency BMI 33.0-33.9,adult Non-smoker Class 1 obesity due to excess calories in adult Tests Performed Urnls Dip Stick Auto w/o Microscopy POC 95952 Your Care Team Attending Physician - Sonam [...] 5:00 PM EST With: Sonam Bertrand Where: [facility] Family Medicine Office/Clini c Noteon 03-15-2023 Family Medicine Office/Clinic Note HPI Staff Bnoilla is a 47 year old female presenting [...] Daily, # 30 tab(s), Refills(s) 0, Pharmacy: [facility], 162.2, cm, 02/14/23 10:52:00 EDT, Height/Length Dosing, 90.6, kg, 02/14/23 10:52:00 EDT, Weight Dosing phentermine, 37.5 mg = 1 tab(s), Oral, Daily, # 30 tab(s), Refills(s) 0, Pharmacy: [facility], 162.2, cm, 03/15/23 16:46:00 EST, Height/Length Dosing, 88.3, kg, 03/15/23 16:46:00 EST, Weight Dosing 2. Urinary frequency (R35.0: Frequency of micturition) pt was having uti symptoms had some left over meds and took them urinalysis negative in office today. Ordered: Urnls Dip Stick Auto w/o Microscopy POC 82172 3. BMI 33.0-33.9,adult (Z68.33: Body mass index [BMI] 33.0-33.9, adult) bmi education complete 4. Non-smoker (Z78.9: Other specified health status) continue not smoking Ordered: phentermine, 37.5 mg = 1 tab(s), Oral, Daily, # 30 tab(s), Refills(s) 0, Pharmacy: [facility], 162.2, cm, 02/14/23 10:52:00 EDT, Height/Length Dosing, 90.6, kg, 02/14/23 10:52:00 EDT, Weight Dosing phentermine, 37.5 mg = 1 tab(s), Oral, Daily, # 30 tab(s), Refills(s) 0, Pharmacy: [facility], 162.2, cm, 03/15/23 16:46:00 EST, Height/Length Dosing, 88.3, kg, 03/15/23 16:46:00 EST, Weight Dosing Class 1 obesity due to excess calories in adult (E66.09: Other obesity due to excess calories) Ordered: phentermine, 37.5 mg = 1 tab(s), Oral, Daily, # 30 tab(s), Refills(s) 0, Pharmacy: [facility], 162.2, cm, 02/14/23 10:52:00 EDT, Height/Length Dosing, 90.6, kg, 02/14/23 10:52:00 EDT, Weight Dosing phentermine, 37.5 mg = 1 tab(s), Oral, Daily, # 30 tab(s), Refills(s) 0, Pharmacy: [facility], 162.2, cm, 03/15/23 16:46:00 EST, Height/Length [...] Lab Results (more content not included)... [facility] Comment on above: Result Comment: Elec tronically Signed By: Sonam Bertrand\.br\Date and Time Signed: 03/15/23 16:58 EST Ambulatory Visit Summaryon 1 Ambulatory Visit Summary LIANG BONILLA Segovia :1975 Visit Date:02/14/2023 Ambulatory Visit Instructions Your [...] 3:20 PM EST With: Sonam Bertrand Where: [facility] Family Medicine Office/Clini c Noteon 02-14-2023 Family Medicine Office/Clinic Note HPI Staff Bonilla is a 47 year old female presenting to [facility] care Establish Care: History: hypothyroid, Any previous diagnosis: [...] Daily, # 30 tab(s), Refills(s) 0, Pharmacy: [facility], 162.2, cm, 02/14/23 10:52:00 EDT, Height/Length Dosing, 90.6, kg, 02/14/23 10:52:00 EDT, Weight Dosing 2. BMI 34.0-34.9,adult (Z68.34: Body mass index [BMI] 34.0-34.9, adult) BMI education complete Ordered: phentermine, 37.5 mg = 1 tab(s), Oral, Daily, # 30 tab(s), Refills(s) 0, Pharmacy: [facility], 162.2, cm, 02/14/23 10:52:00 EDT, Height/Length Dosing, 90.6, kg, 02/14/23 10:52:00 EDT, Weight Dosing 3. Class 1 obesity due to excess calories in adult (E66.09: Other obesity due to excess calories) see above Ordered: phentermine, 37.5 mg = 1 tab(s), Oral, Daily, # 30 tab(s), Refills(s) 0, Pharmacy: [facility], 162.2, cm, 02/14/23 10:52:00 EDT, Height/Length Dosing, 90.6, kg, 02/14/23 10:52:00 EDT, Weight Dosing 4. Nonsmoker (Z78.9: Other specified health status) continue not smoking Ordered: phentermine, 37.5 mg = 1 tab(s), Oral, Daily, # 30 tab(s), Refills(s) 0, Pharmacy: [facility], 162.2, cm, 02/14/23 10:52:00 EDT, Height/Length [...] BNT-162b2 vax 10/04/2020 Recorded 2022-10-17: TPV40 [facility] Comment on above: Result Comment: Elec tronically Signed By: Sonam Bertrand\.br\Date and Time Signed: 02/14/23 11:29 EDT Medication Consenton 023 Medication Consent [id number] #1.00TIFF [facility] RESPIRATORY PANEL PLUSon Adenovirus Not detected Normal NOT DETECTED [facility] Comment on above: Performed By: #### R SPLUS #### [facility] [address] [address] [address] Isidoro Mckeon Parapertusis Not detected Normal NOT DETECTED [facility] Comment on above: Performed By: #### R SPLUS #### [facility] [address] [place] [address] Dr. Isidoro Mckeon Pertussis Not detected Normal NOT DETECTED [facility] Comment on above: Performed By: #### R SPLUS #### [facility] [address] [place] [address] Dr. Isidoro Bryant Chlamydia Pneumoniae Not detected Normal NOT DETECTED [facility] Comment on above: Performed By: #### R SPLUS #### [facility] [address] [place] [address] Dr. Isidoro Bryant Coronavirus 229E Not detected Normal NOT DETECTED [facility] Comment on above: Performed By: #### R SPLUS #### [facility] [address] [place] [address] Dr. Isidoro Bryant Coronavirus HKU1 Not detected Normal NOT DETECTED [facility] Comment on above: Performed By: #### R SPLUS #### [facility] [address] [place] [address] Dr. Isidoro Bryant Coronavirus NL63 Not detected Normal NOT DETECTED [facility] Comment on above: Performed By: #### R SPLUS #### [facility] [address] [place] [address] Dr. Isidoro Bryant Coronavirus OC43 Not detected Normal NOT DETECTED [facility] Comment on above: Performed By: #### R SPLUS #### [facility] [address] [place] [address] Dr. Isidoro Bryant Influenza A H1 2009 Not detected Normal NOT DETECTED [facility] Comment on above: Performed By: #### R SPLUS #### [facility] [address] [place] [address] Dr. Isidoro Bryant Influenza A H3 Not detected Normal NOT DETECTED [facility] Comment on above: Performed By: #### R SPLUS #### [facility] [address] [place] [address] Dr. Isidoro Bryant Influenza B Not detected Normal NOT DETECTED [facility] Comment on above: Performed By: #### R SPLUS #### [facility] [address] [place] [address] Dr. Isidoro Bryant Metapneumovirus Detected Abnormal NOT DETECTED [facility] Comment on above: Performed By: #### R SPLUS #### [facility] [address] [address] [address] Isidoro Bryant Mycoplas. Pneumoniae Not detected Normal NOT DETECTED [facility] Comment on above: Performed By: #### R SPLUS #### [facility] [address] [place] [address] Dr. Isidoro Bryant Parainfluenza 1 Not detected Normal NOT DETECTED [facility] Comment on above: Performed By: #### R SPLUS #### [facility] [address] [place] [address] Dr. Isidoro Bryant Parainfluenza 2 Not detected Normal NOT DETECTED [facility] Comment on above: Performed By: #### R SPLUS #### [facility] [address] [place] [address] Dr. Isidoro Bryant Parainfluenza 3 Not detected Normal NOT DETECTED [facility] Comment on above: Performed By: #### R SPLUS #### [facility] [address] [place] [address] Dr. Isidoro Bryant Parainfluenza 4 Not detected Normal NOT DETECTED [facility] Comment on above: Performed By: #### R SPLUS #### [facility] [address] [place] [address] Dr. Isidoro Bryant Rhino/Enterovirus Not detected Normal NOT DETECTED [facility] Comment on above: Performed By: #### R SPLUS #### [facility] [address] [place] [address] Dr. Isidoro Bryant RP2 Header 1 RESPIRATORY PANEL: VIRUSES Normal [facility] Comment on above: Performed By: #### R SPLUS #### [facility] [address] [place] [address] Dr. Isidoro Bryant RP2 Header 2 RESPIRATORY PANEL: BACTERIA Normal [facility] Comment on above: Performed By: #### R SPLUS #### [facility] [address] [place] [address] Dr. Isidoro Bryant RSV Not detected Normal NOT DETECTED [facility] Comment on above: Performed By: #### R SPLUS #### [facility] [address] [address] [address] Isidoro Bryant SARS-CoV-2 (COVID-19) RNA SHEKHAR+probe Ql (Unsp spec) Not detected Normal NOT DETECTED [facility] Comment on above: Performed By: #### R SPLUS #### [facility] [address] [address] [address] Isidoro Bryant Encounters Encounter Date Encounter Type Care Provider Facility Start: 06-13-2023 End: 06-14-2023 ambulatory Sonam L Frankie Facility: [facility] [place] [facility] Start: 05-05-2023 End: 05-06-2023 ambulatory Sonam L Frankie Facility: [facility] [place] [facility] Start: 04-12-2023 End: 04-13-2023 ambulatory Sonam L Frankie Facility: [facility] [place] [facility] Start: 04-06-2023 End: 04-07-2023 ambulatory Sonam L Frankie Facility: [facility] [place] [facility] Start: 03-15-2023 End: 03-16-2023 ambulatory Sonam L Frankie Facility: [facility] [place] [facility] Start: 02-14-2023 End: 02-15-2023 ambulatory Sonam L Frankie Facility: [facility] [place] [facility] Start: 01-30-2023 End: 01-31-2023 ambulatory Sonam L Frankie Facility: [facility] [place] [facility] Start: 10-19-2022 End: 10-20-2022 ambulatory Sonam L Frankie Facility: [facility] [place] [facility] Start: 10-13-2022 ambulatory Sonam Frankie [facility] [place] Start: 04-12-2021 End: 04-12-[address] GIOVANI LERMA Facility:[facility] Payers Date Payer Category Payer Unknown [id number] 1975 Unknown [id number] 2.16.84 [id number] 1975 Unknown [id number] 2.16.8 [id number] 1975 Unknown [id number] 2.16.8 [id number] 1975 Unknown [id number] 2.16.8 [id number] 1975 Unknown [id number] 2.16.8 [id number] 1975 Unknown [id number] 2.16.8 [id number] 1975 Unknown [id number] 2.16.8 [id number] 1975 Unknown [id number] 2.16.8 [id number] 1975 Unknown [id number] 2.16.8 [id number] 1957 Unknown [id number] Summary Purpose Family History No Family History Records FoundNo Family History Records Found Advance Directives No Advanced Directives Records FoundNo Advanced Directives Records Found Additional Source Comments INFORMATION SOURCE (unrecogn ized section and content) DATE CREATED AUTHOR 04/18/2021 [facility] DATE CREATED AUTHOR AUTHOR'S ORGANIZ ATION 07/01/2023 [facility] FOR RECORDS PERTAINING TO PATIENTS WHO ARE [...] BE BASED ON THE PRIMARY CLINICAL RECORDS. [employer] provides no warranty or guarantee of the accuracy or completeness of information in this document.
== END 2023-07-03 10:58 | disposition home or self-care (01) ==
LOC: SLEEP 10:57
PROVIDERS: PCP Nurse Practitioner; Visit Provider Nurse Practitioner
DX: G47.33 Obstructive sleep apnea (adult) (pediatric) (principal); G47.11 Idiopathic hypersomnia with long sleep time
CPT/HCPCS: 95806

== ENCOUNTER 2024-01-03 10:08 | Outpatient (OUT) | payer BC, SELFPAY ==
--- NOTE | 2024-01-03 | XR_ITS ---
The [address] [address] Patient Name: BONILLA TAVERA MRN: [id number] date: 1975 Sex: F Assigned Patient Location: LAB Current Patient Location: LAB Accession/Order Number: [id number] Exam Date: 01/03/2024 10:18 Report Date: 01/03/2024 15:23 At the request of: ANGELI HUFFMAN Procedure: XR chest 2V EXAM: XR chest 2V HISTORY: Shortness of breath. COMPARISON: None. TECHNIQUE: PA and lateral views of the chest performed. FINDINGS: The trachea is midline. The heart size is normal. The cardiomediastinal silhouette and hilar shadows are within normal limits. There is no consolidation, pleural effusion or pulmonary vascular congestion. There is no pneumothorax or osseous abnormality. XR/XR chest 2V IMPRESSION: Unremarkable PA and lateral views of the chest. Electronically authenticated by: CHECO ESPINOZA Date: 01/03/2024 15:23
[2024-01-03 11:05] LABS: D Dimer 0.34 mg/L FEU (<=0.59)
== END 2024-01-03 10:09 | disposition home or self-care (01) ==
LOC: LAB 10:10
PROVIDERS: PCP Nurse Practitioner; Visit Provider Nurse Practitioner
DX: R06.02 Shortness of breath (principal); R42 Dizziness and giddiness
CPT/HCPCS: 36415; 71046; 85378

== ENCOUNTER 2024-09-10 09:07 | Outpatient (OUT) | payer BC, SELFPAY ==
--- OUTSIDE RECORDS SUMMARY | 2024-09-10 09:13 | XMS_ITS | Clinical Summary ---
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 Last address used for calculation Not on file 03/25/2020 Comments Unknown Sex and Gender Information Value Date Recorded Sex Assigned at Not on file Legal Sex Female 10:19 AM EST Gender Identity Not on file Sexual Orientation Not on file Last Filed Vital Signs Vital Sign Reading Time Taken Comments Blood Pressure - - Pulse - - Temperature - - Respiratory Rate - - Oxygen Saturation - - Inhaled Oxygen Concentration - - Weight 95.3 kg (210 lb) 08/30/2019 11:37 AM EDT Height 160 cm (5' 3 ) 08/30/2019 11:37 AM EDT Body Mass Index 37.2 08/30/2019 11:37 AM EDT Plan of Treatment Health Maintenance Due Date Last Done Comments Anxiety Screening 1995 Depression Screening 1995 HIV Screening 1995 Hepatitis C Screening 1995 DTaP,Tdap,Td Vaccine (1 - Tdap) 1996 Hepatitis B Vaccine (1 of 3 - 19+ 3-dose series) 03/09 Cervical Cancer Screening [address] Colonography 2022 Cologuard (FIT-DNA) 2022 Colonoscopy 2022 Colorectal Cancer Screening 2022 Diabetes Screening 2022 Fecal Occult Blood 2022 Lipid Screening 2022 Sigmoidoscopy 2022 Covid-19 Vaccine ( season) 2023 Influenza Vaccine (Season Ended) 2024 Insurance BLUE CARD PPO OOS Member Subscriber Plan / Payer (Ef fective 2017-Present) Name:Teresa Hallman Relation to Subscriber:Self Name:Teresa Hallman Payer ID:[id number] (NAIC) Group ID:Not on file Type:PPO Address: [facility] [address] [place] [id number]
--- OUTSIDE RECORDS SUMMARY | 2024-09-10 09:13 | XMS_ITS | Clinical Summary ---
Author Organization [facility] Address [address] [place] [address] Care Team Providers Care Washery Boss Name Role Phone Mike Lerma MD Primary Care Provider [phone] Allergies Active Allergy Reactions Criticality Noted Date Comments Penicillins Unknown 11/26/2023 Sulfa Antibiotics Hives 11/26/2023 Medications ibuprofen 800 MG tablet Take 1 tablet by mouth in the morning and 1 tablet in the evening and 1 tablet before bedtime. Active albuterol HFA 90 mcg/act inhalerIndications: Bronchitis Inhale 2 puffs every 4 (four) hours if needed for wheezing 18 g 11 4 11/26/19 25 Active levothyroxine (Synthroid, Levoxyl) 50 MCG tabletIndications:A cquired hypothyroidism (CMS/HCC) TAKE 1 TABLET BY MOUTH EVERY DAY IN THE MORNING FOR 30 DAYS 30 tablet 5 Active Active Problems Problem Noted Date Diagnosed Date Arthritis of lumbar spine 09/19/2022 Carpal tunnel syndrome 09/19/2022 Hyperlipidemia 09/19/2022 Hypothyroidism 09/19/2022 Meralgia paresthetica of left side 09/19/2022 Obesity 09/19/2022 Pain in female genitalia on intercourse 09/20/19 23 Vaginal high risk human verónica llomavirus (HPV) DNA test positive 09/19/2022 Encounters Date Type Department Care Team Description 07/27/2024 Refill [facility] [address] [place] [address] Mike Lerma MD Acquired hypothyroidism (CMS/HCC) from Last 3 Months Social History Tobacco Use Types Packs/Day Years Used Date Smoking Tobacco: Never Smokeless Tobacco: Never Tobacco Cessation:Counseling Given: Not Answered Alcohol Use Standard Drinks/Week Comments Never 0 (1 standard drink = 0.6 oz pur e alcohol) Comments Unknown Sex and Gender Information Value Date Recorded Sex Assigned at Not on file Legal Sex Female 6:43 PM EDT Gender Identity Not on file Sexual Orientation Not on file Last Filed Vital Signs Vital Sign Reading Time Taken Comments Blood Pressure 120/78 11/26/2023 9:15 AM EDT Pulse 92 11/26/2023 9:15 AM EDT Temperature 36.6 C (97.8 F) 11/26/2023 9:15 AM EDT Respiratory Rate - - Oxygen Saturation 96% 11/26/2023 9:15 AM EDT Inhaled Oxygen Concentration - - Weight 86.2 kg (190 lb) 11/26/2023 9:15 AM EDT Height 162.6 cm (5' 4 ) 03/31/2022 12:00 PM EST Body Mass Index 32.61 03/31/2022 12:00 PM EST Plan of Treatment Health Maintenance Due Date Last Done Comments CT Colonography 1977 Colonoscopy 1977 Colorectal Cancer Screening 1977 FIT-DNA 1977 FIT 1977 FOBT 1977 Sigmoidoscopy 1977 Pap Smear 1998 Mammogram 06/05/2019 06/05/2018, 06/05/2018 Influenza Vaccine (Season Ended) 2024 Cervical Cancer Screening 02/11/2026 HPV/Cotest 02/11/2026 02/11/2021, 01/02/2019 Procedures Procedure Name Priority Date/Time Associated Diagnosis Comments THINPREP TIS PAP REFLEX HPV MRNA E6/E7 (78781) Routine 02/11/2021 BI MAMMOGRAM SCREENING TOMOSYNTHESIS BILATERAL Routine 06/05/2018 from Last 3 Months or Most Recently Relevant to Health Maintenance Results * THINPREP TIS PAP REFLEX HPV MRNA E6/E7 (58854) (02/11/2021) CLINICAL INFORMATION: None given [facility] LMP: NONE GIVEN [facility] PREV. PAP: 12/2018 [facility]. BX: NONE GIVEN [facility] SOURCE: Cervix, Endocervix [facility] STATEMENT OF ADEQUACY: SEE COMMENT [facility] Comment: Satisfactory for evaluation. Endocervical/transformation zone component present. INTERPRETATION /RESULT: Negative for intraepithelial lesion or malignancy. [facility] INFECTION: SEE COMMENT [facility] Comment: Shift in vaginal richie suggestive of bacterial vaginosis. Trichomonas vaginalis identified. COMMENT: SEE COMMENT [facility] Comment: This case could not be evaluated with computer assisted technology. The slide was manually screened according to routine procedures. CYTOTECHNOLOGI ST: SEE COMMENT [facility] Comment: RLP, CT(ASCP) CT screening location: [place] [address]. REVIEW CYTOTECHNOLOG[address] ST: SEE COMMENT [facility] Comment: PCJ, SCT(ASCP) CT screening location: [place] [address]. COMMENT SEE COMMENT [facility] Comment: EXPLANATORY NOTE: The Pap is a screening test for cervical cancer. It is not a diagnostic test and is subject to false negative and false positive results. It is most reliable when a satisfactory sample, regularly obtained, is submitted with relevant clinical findings and history, and when the Pap result is evaluated along with historic and current clinical information. 02/11/2021 us Kate Matos DO [facility] Final Resul t [facility] * Bilateral screening mammogram with tomosynthesis (06/05/2018) Anatomical Region Laterality Modality Breast Bilateral Mammography Narrative 06/05/2018 12:00 AM EST PERFORMED AT [facility] LOCATION:[place] [address] [id number] [place] [id number] Patient: BONILLA MELISSA Exam Date: 06/05/2018 : 1975 Gender:F Ordering : DR MIKE LERMA Admission #: [id number] Family : Order #: [id number] CLICK HERE TO VIEW EXAM RADIOLOGY REPORT PROCEDURE: MAMMOGRAM BILATERAL SCREENING DIGITAL WITH COMPUTER AIDED DETECTION COMPARISON: None. INDICATIONS: Screening mammography Calculator Name NCI Breast Cancer Risk Assessment Tool 5 Year Breast Cancer Risk 0.70% Lifetime Breast Cancer Risk 12.00% Personal Breast Cancer No Personal Ovarian Cancer No Treatments None See Below For Report LOCATION: [facility] BREAST COMPOSITION: Almost entirely fatty. FINDINGS: DIAGNOSTIC CATEGORY 2--BENIGN FINDING: RIGHT BREAST: No significant suspicious finding. Partially rim calcified oil cysts within the upper inner quadrant, mid breast. LEFT BREAST: No significant suspicious finding. RECOMMENDATIONS: ROUTINE MAMMOGRAM AND CLINICAL EVALUATION IN 12 MONTHS. PLEASE NOTE: A NORMAL MAMMOGRAM DOES NOT EXCLUDE THE POSSIBILITY OF BREAST CANCER. A CLINICALLY SUSPICIOUS PALPABLE LUMP SHOULD BE BIOPSIED. Dictated by: Sebastien Lopez MD on 06/05/2018 at 17:42 Approved by: Sebastien Lopez MD on 06/05/2018 at 17:43 Family Cancers Grandfather-paternal with unknown cancer at age 45. Procedure Note CONVERSION, GENERIC - 10/21/2022 PERFORMED AT [facility] LOCATION:[address] [address] Patient: BONILLA MELISSA Exam Date: 06/05/2018 : 1975 Gender:F Ordering : DR MIKE LERMA Admission #: [id number] Family : Order #: [id number] CLICK HERE TO VIEW EXAM RADIOLOGY REPORT PROCEDURE: MAMMOGRAM BILATERAL SCREENING DIGITAL WITH COMPUTER AIDED DETECTION COMPARISON: None. INDICATIONS: Screening mammography Calculator Name NCI Breast Cancer Risk Assessment Tool 5 Year Breast Cancer Risk 0.70% Lifetime Breast Cancer Risk 12.00% Personal Breast Cancer No Personal Ovarian Cancer No Treatments None See Below For Report LOCATION: [facility] BREAST COMPOSITION: Almost entirely fatty. FINDINGS: DIAGNOSTIC CATEGORY 2--BENIGN FINDING: RIGHT BREAST: No significant suspicious finding. Partially rim calcifiedoil cysts within the upper inner quadrant, mid breast. LEFT BREAST: No significant suspicious finding. RECOMMENDATIONS: ROUTINE MAMMOGRAM AND CLINICAL EVALUATION IN 12 MONTHS. PLEASE NOTE: A NORMAL MAMMOGRAM DOES NOT EXCLUDE THE POSSIBILITY OFBREAST CANCER. A CLINICALLY SUSPICIOUS PALPABLE LUMP SHOULD BE BIOPSIED. Dictated by: Sebastien Lopez MD on 06/05/2018 at 17:42 Approved by: Sebastien Lopez MD on 06/05/2018 at 17:43 Family Cancers Grandfather-paternal with unknown cancer at age 45. Mike Lerma MD IMG BI PROCEDURES Final Result from Last 3 Months or Most Recently Relevant to Health Maintenance Insurance [facility] Care Teams Washery Boss Relationship Specialty Start Date End Date Mike Lerma MD [address] [facility] [address] [place] [address] PCP - General Internal Medicine 09/19/22
--- NOTE | 2024-09-10 09:23 | XR_ITS ---
The [address] [address] Patient Name: BONILLA TAVERA MRN: [id number] date: 1975 Sex: F Assigned Patient Location: [facility] Current Patient Location: [facility] Accession/Order Number: [id number] Exam Date: 09/10/2024 10:09 Report Date: 09/10/2024 10:15 At the request of: ANGELI HUFFMAN Procedure: XR shoulder RT min 2V RIGHT SHOULDER - 3 views CLINICAL HISTORY: Patient was pulled by a dog on leash and fell one month ago. Continued right shoulder pain COMPARISON: None AP, Y and Grashey views were obtained. Mild sclerosis and slight irregularity are seen at the greater tuberosity, presumably degenerative There is no other acute or healing fracture. No dislocation is identified. There are no significant soft tissue abnormalities. XR/XR shoulder RT min 2V IMPRESSION: NO ACUTE BONY INJURY. Impression dictated by: Rose Swan M.D. 09/10/2024 10:15 AM Dictation Location: [place] [address] Electronically authenticated by: [id number] Y Date: 09/10/2024 10:15
--- OUTSIDE RECORDS SUMMARY | 2024-09-10 16:36 | XMS_ITS | CCD ---
Author Organization [facility] Care Team Providers Care Valve Inspector Name Role Phone DR GIOVANI NI Attending Unavailable RAINE, DR MATUTE Consulting Unavailable DR GIOVANI NI Primary Care Unavailable DR GIOVANI NI Admitting Unavailable Frankie, CARTRIDGE LOADER-C Sonam Dickson Primary Care Provider Frankie, CARTRIDGE LOADERDamarisC Sonam Dickson Attending Provider Frankie, Sonam Dickson Admitting Unavailable Frankie, Sonam Dickson Attending Unavailable Frankie, Sonam Dickson Primary Care Unavailable CHIDI NICHOLAS Attending Unavailable CHIDI NICHOLAS Referring Unavailable Frankie, COAT EXAMINER Sonam L Attending Unavailable Frankie, COAT EXAMINER Sonam L Attending Unavailable Frankie, COAT EXAMINER Sonam L Attending Unavailable Frankie, COAT EXAMINER Sonam L Attending Unavailable Frankie, COAT EXAMINER Sonam L Attending Unavailable Frankie, COAT EXAMINER Sonam L Attending Unavailable Allergies Allergy Classification Reported Allergen(s) Allergy Type Date of Onset Reaction(s) Facility (2 sources) Penicillins; Translations: [penicillins] Drug allergy (disorder) 3 [facility] (1 source) Sulfonamides (Antibiotic) Drug allergy (disorder) 3 [facility] Rep[facility] (2 sources) Penicillin; Translations: [penicillin G] Drug Allergy 3 [facility] (2 sources) Sulfonamides (Antibiotic); Translations: [Sulfa (Sulfonamide Antibiotics)] Allergy to substance 3 [facility] (1 source) Acetaminophen / oxyCODONE; Translations: [Percocet 5/325] Drug Allergy [facility] Rep[facility] (1 source) Sulfamethoxazole; Translations: [sulfamethoxazole ] Drug Allergy [facility] Repository Problems Problem Classification Problem Date Documented Da te Episodic/Chronic Malaise and fatigue (4 sources) Other fatigue; Translations: [OTHER FATIGUE] Onset: 04-12-2021 Episodic Spondylosis; intervertebral disc disorders; other back problems (1 source) Cervicalgia; Translations: [Cervicalgia] Onset: 11-15-2023 Episodic Unclassified (1 source) COUGH, UNSPECIFIED; Translations: [COUGH, UNSPECIFIED] Onset: 04-18-2021 Results Test Name Value Interpretation Reference Range Facility Ambulatory Visit Summaryon 0 08-19-2024 Ambulatory Visit Summary Ambulatory Visit Summary BONILLA TAVERA :1975 Visit Date:08/19/2024 Ambulatory Visit Instructions Your Diagnosis Right shoulder injury Right shoulder pain Fall at home Unspecified place in unspecified non-institutional (private) residence as the place of occurrence of the external cause Tests Performed XR Shoulder Complete Right -- Results Pending -- Please visit your patient portal for your results or contact your primary care physician. Your Care Team Attending Physician - Sonam Bertrand Primary Care Physician - Sonam Bertrand This Is Your Medications List albuterol (Albuterol (Eqv-Proventil HFA) 90 mcg/inh inhalation aerosol) azithromycin (azithromycin 250 mg Tab) cyclobenzaprine (cyclobenzaprine 10 mg Tab) fluconazole (Diflucan 150 mg Tab) fluconazole (Diflucan 150 mg Tab) levothyroxine (levothyroxine 50 mcg (0.05 mg) Tab) phentermine (phentermine 37.5 mg Tab) Procedures Performed Removal of stent (01/11/2019), Cystoscopic laser lithotripsy of ureteric calculus (01/09/2019), diagnostic laparoscopy, bilateral salpingectomy with removal of hydrosalpinx, lysis of adhesions, diagnostic hysteroscopy, endometrial ablation (01/16/2015), Cholecystectomy. Discharge Vitals Heart Rate (Peripheral) 109 Blood Pressure 110/80 Height 163 cm Height 64 in Weight 95.7 kg Weight 210.982 lb BMI 36.02 Medications What How Much When Why Instructions Unchanged albuterol (Albuterol (Eqv-Proventil HFA) 90 mcg/ inh inhalation aerosol) INHALE 2 PUFFS EVERY 4 HOURS IF NEEDED FOR WHEEZING. Unchanged azithromycin (azithromycin 250 mg Tab) TAKE 2 TABLETS BY MOUTH TODAY, THEN TAKE 1 TABLET DAILY FOR 4 DAYS DIRECTED Unchanged cyclobenzaprine (cyclobenzaprine 10 mg Tab) 1 Tablets By Mouth 3 times a day as needed for for spasm Unchanged fluconazole (Diflucan 150 mg Tab) 1 Tablets By Mouth Once Abnormal x-ray of cervical spine Neck pain take 1 tab on day one and 1 tab on day four Unchanged fluconazole (Diflucan 150 mg Tab) 1 Tablets By Mouth Once Abnormal x-ray of cervical spine Neck pain take 1 tab on day one and 1 tabon day four Unchanged levothyroxine (levothyroxine 50 mcg (0.05 mg) Tab) 1 Tablets By Mouth Every day Unchanged phentermine (phentermine 37.5 mg Tab) 1 Tablets By Mouth Every day BMI 34.0-34.9,adult BMI 34.31 30 day supply Allergies penicillins (lips blue) sulfamethoxazole (rash) Problems Ongoing - Any problem that you are currently receiving treatment for. Abnormal x-ray of cervical spine Bronchitis Carpal tunnel syndrome, bilateral Class 1 obesity due to excess calories in adult Daytime somnolence Dizziness Dysuria Encounter for weight management Fall at home Frequent urination Injury of left little finger Kidney stone Left shoulder pain Loud snoring Microhematuria Nausea Neck pain Nocturia Nonsmoker Right shoulder injury Right shoulder pain Shortness of breath Sleep disorder Ureterovesical junction (UVJ) obstruction Urinary urgency Vaginal yeast infection Weight gain Patient Survey You may receive a survey via text or e-mail asking about your office visit. Please share your experience with us by completing your survey. We appreciate your feedback and thank you for choosing us for your care. Normal [facility] Family Medicine Office/Clini c Noteon 08-19-2024 Family Medicine Office/Clinic Note Family Medicine Office/Clinic Note Chief Complaint right arm and shoulder pain HPI Staff complaints of right arm and shoulder pain Onset: yesterday Characteristics: injury occurred while walking her dog, Patient fell in the grass, pain increased as the day went on, limited range of motion, rates pain 7/10 with movement OTC tried: none History of Present Illness pt was letting her dog out and he ran and she fell to the ground landing on right arm/shoulder Review of Systems PHQ Score Initial Depression Screen Score: 0 SCORE Physical Exam Vitals & Measurements HR: 109(Peripheral) BP: 110/80 SpO2: 95% HT: 64 in HT: 163 cm WT: 210.982 lb WT: 95.7 kg BMI: 36.02 General: alert, no acute distress ENMT: oral mucosa moist, no pharyngeal erythema or exudate Cardiovascular: regular rate and rhythm, normal peripheral perfusion Respiratory: Lungs CTA, respirations non labored Extremities: no deformity, no trauma Neurological: oriented x 4, LOC appropriate for age, CN II-XII intact, motor strength equal & normal bilaterally, speech normal limited ROM greater than 90 degree angle above head due to pain Assessment/Plan 1. Right shoulder injury (S49.91XA: Unspecified injury of right shoulder and upper arm, initial encounter) pt was knocked to the ground by her dog on a leash. landed on right arm/shoulder. area is tender to touch. and is having painful ROM. x ray order provdied. meloxicam and medrol dose pack sent in. if pain continues greater than 3-4 weeks she will come back in for follow up and order for MRI if needed. Ordered: meloxicam, 15 mg = 1 tab(s), Oral, Daily, # 30 tab(s), Refills(s) 0, Pharmacy: [facility] [id number] [facility], 163, cm, 08/19/24 11:29:00 EDT, Height/Length Dosing, 95.7, kg, 08/19/24 11:29:00 EDT, Weight Dosing methylPREDNISolone, = 1 packet(s), Oral, As Directed, as directed on package labeling, X 6 day(s), # 21 tab(s), Refills(s) 0, Pharmacy: [id number], 163, cm, 08/19/24 11:29:00 EDT, Height/Length Dosing, 95.7, kg, 08/19/24 11:29:00 EDT, Weight Dosing XR Shoulder Complete Right 2. Right shoulder pain (M25.511: Pain in right shoulder) see above Ordered: meloxicam, 15 mg = 1 tab(s), Oral, Daily, # 30 tab(s), Refills(s) 0, Pharmacy: [facility] [id number] [facility], 163, cm, 08/19/24 11:29:00 EDT, Height/Length Dosing, 95.7, kg, 08/19/24 11:29:00 EDT, Weight Dosing methylPREDNISolone, = 1 packet(s), Oral, As Directed, as directed on package labeling, X 6 day(s), # 21 tab(s), Refills(s) 0, Pharmacy: [id number], 163, cm, 08/19/24 11:29:00 EDT, Height/Length Dosing, 95.7, kg, 08/19/24 11:29:00 EDT, Weight Dosing XR Shoulder Complete Right 3. Fall at home (W19.XXXA: Unspecified fall, initial encounter) letting dog out and he ran after another dog on leash and knocked her to the ground Ordered: meloxicam, 15 mg = 1 tab(s), Oral, Daily, # 30 tab(s), Refills(s) 0, Pharmacy: [id number], 163, cm, 08/19/24 11:29:00 EDT, Height/Length Dosing, 95.7, kg, 08/19/24 11:29:00 EDT, Weight Dosing methylPREDNISolone, = 1 packet(s), Oral, As Directed, as directed on package labeling, X 6 day(s), # 21 tab(s), Refills(s) 0, Pharmacy: [facility] [id number] [facility], 163, cm, 08/19/24 11:29:00 EDT, Height/Length Dosing, 95.7, kg, 08/19/24 11:29:00 EDT, Weight Dosing XR Shoulder Complete Right 4. BMI 36.0-36.9,adult (Z68.36: Body mass index [BMI] 36.0-36.9, adult) restarted adipex today. she had some left at home Unspecified place in unspecified non-institutional (private) residence as the place of occurrence of the external cause (Y92.009: Unspecified place in unspecified non-institutional (private) residence as the place of occurrence of the external cause) Follow-up No qualifying data available Problem List/Past Medical History Ongoing Abnormal x-ray of cervical spine BMI 36.0-36.9,adult Bronchitis Carpal tunnel syndrome, bilateral Class 1 obesity due to excess calories in adult Daytime somnolence Dizziness Dysuria Encounter for weight management Fall at home Frequent urination Injury of left little finger Kidney stone Left shoulder pain Loud snoring Microhematuria Nausea Neck pain Nocturia Nonsmoker Right shoulder injury Right shoulder pain Shortness of breath Sleep disorder Ureterovesical junction (UVJ) obstruction Urinary urgency Vaginal yeast infection Weight gain Historical No qualifying data Procedure/Surgical History Removal of stent (01/11/2019), Cystoscopic laser lithotripsy of ureteric calculus (01/09/2019), diagnostic laparoscopy, bilateral salpingectomy with removal of hydrosalpinx, lysis of adhesions, diagnostic hysteroscopy, endometrial ablation (01/16/2015), Cholecystectomy. Medications Albuterol (Eqv-Proventil HFA) 90 mcg/inh inhalation aerosol, Not taking azithromycin 250 mg Tab, Not taking cyclobenzaprine 10 mg Tab, 10 mg= 1 tab(s), Oral, TID, PRN, Not taking Diflucan 150 mg Tab, 150 mg= 1 tab(s), Oral, Once, 1 refills, Not taking (more content not included)... Normal [facility] Comment on above: Result Comment: Elec tronically Signed By: Sonam Bertrand\.br\Date and Time Signed: 08/19/24 11:55 EDT Ambulatory Visit Summaryon 1 Ambulatory Visit Summary Ambulatory Visit Summary BONILLA TAVERA :1975 Visit Date:04/15/2024 Ambulatory Visit Instructions Your Diagnosis Encounter for weight management BMI 34.0-34.9,adult Nonsmoker Class 1 obesity due to excess calories in adult, Other obesity due to excess calories Your Care Team Attending Physician - Sonam Bertrand Primary Care Physician - Sonam Bertrand This Is Your Medications List albuterol (Albuterol (Eqv-Proventil HFA) 90 mcg/inh inhalation aerosol) azithromycin (azithromycin 250 mg Tab) cyclobenzaprine (cyclobenzaprine 10 mg Tab) fluconazole (Diflucan 150 mg Tab) levothyroxine (levothyroxine 50 mcg (0.05 mg) Tab) phentermine (phentermine 37.5 mg Tab) Procedures Performed Removal of stent (01/11/2019), Cystoscopic laser lithotripsy of ureteric calculus (01/09/2019), diagnostic laparoscopy, bilateral salpingectomy with removal of hydrosalpinx, lysis of adhesions, diagnostic hysteroscopy, endometrial ablation (01/16/2015), Cholecystectomy. Discharge Vitals Temperature (Oral) 36.3 ???C Heart Rate (Peripheral) 96 Respiratory Rate 18 Blood Pressure 138/84 Height 163 cm Height 64 in Weight 92.6 kg Weight 204.148 lb BMI 34.85 What to do next Scheduled Follow-Up Appointments Monday 10:00 AM EDT With: Sonam Bertrand Where: [place] [phone] Someone Will Contact You Regarding These Appointments [facility] [place], Dietary, Council Member at [facility], 04/15/24 8:57:00 EST, BMI 34.0-34.9,adult Nonsmoker Class 1 obesity due to excess calories in adult Medications What How Much When Why Instructions Unchanged albuterol (Albuterol (Eqv-Proventil HFA) 90 mcg/ inh inhalation aerosol) INHALE 2 PUFFS EVERY 4 HOURS IF NEEDED FOR WHEEZING. Unchanged azithromycin (azithromycin 250 mg Tab) TAKE 2 TABLETS BY MOUTH TODAY, THEN TAKE 1 TABLET DAILY FOR 4 DAYS DIRECTED Unchanged cyclobenzaprine (cyclobenzaprine 10 mg Tab) 1 Tablets By Mouth 3 times a day as needed for for spasm Unchanged fluconazole (Diflucan 150 mg Tab) 1 Tablets By Mouth Once Abnormal x-ray of cervical spine Neck pain take 1 tab on day one and 1 tab on day four Unchanged levothyroxine (levothyroxine 50 mcg (0.05 mg) Tab) 1 Tablets By Mouth Every day Unchanged phentermine (phentermine 37.5 mg Tab) 1 Tablets By Mouth Every day BMI 33.8 Allergies penicillins (lips blue) sulfamethoxazole (rash) Problems Ongoing - Any problem that you are currently receiving treatment for. Abnormal x-ray of cervical spine Bronchitis Carpal tunnel syndrome, bilateral Class 1 obesity due to excess calories in adult Daytime somnolence Dizziness Dysuria Encounter for weight management Frequent urination Injury of left little finger Kidney stone Left shoulder pain Loud snoring Microhematuria Nausea Neck pain Nocturia Nonsmoker Shortness of breath Sleep disorder Ureterovesical junction (UVJ) obstruction Urinary urgency Vaginal yeast infection Weight gain Patient Survey You may receive a survey via text or e-mail asking about your office visit. Please share your experience with us by completing your survey. We appreciate your feedback and thank you for choosing us for your care. Normal [facility] Family Medicine Office/Clini c Noteon 04-15-2024 Family Medicine Office/Clinic Note Family Medicine Office/Clinic Note Chief Complaint Weight Management HPI Staff Bonilla is a 49 year old female presenting for 3 month follow up weight NORMAN wanted to restart adipex Weight management Sleeping well:Yes, 6-8 hours Chest pain:No Tremors:No Headaches:No Heart fluttering:No Blurred Vision:No Starting Weight: 214.28 Weight this visit: 204 questions/concerns: interested in placement manager. History of Present Illness pt presents today for weight management Review of Systems PHQ Score Initial Depression Screen Score: 0 SCORE Physical Exam Vitals & Measurements T: 36.3 ???C(Oral) HR: 96(Peripheral) RR: 18 BP: 138/84 SpO2: 95% HT: 64 in HT: 163 cm WT: 92.6 kg WT: 204.148 lb BMI: 34.85 General: alert, no acute distress ENMT: oral [...] circumstances) pt presents today for weight management. is down 10 pounds. would like referral to instructor modeling at [facility] to help with preparing healthy meals. making healthy food choices. RTC 3 months 2. BMI 34.0-34.9,adult (Z68.34: Body mass index [BMI] 34.0-34.9, adult) BMI education given. refilled adipex. continue making healthy food choices Ordered: [facility] External Ambulatory Referral 3. Class 1 obesity due to excess calories in adult (E66.09: Other obesity due to excess calories) see above Ordered: [facility] [place] Ambulatory Referral 4. Nonsmoker (Z78.9: Other specified health status) continue not smoking Ordered: [facility] [place] Ambulatory Referral Follow-up No qualifying data available Problem List/Past Medical History Ongoing Abnormal x-ray of cervical spine Bronchitis Carpal tunnel syndrome, bilateral Class 1 obesity due to excess calories in adult Daytime somnolence Dizziness Dysuria Encounter for weight management Frequent urination Injury of left little finger Kidney stone Left shoulder pain Loud snoring Microhematuria Nausea Neck pain Nocturia Nonsmoker Shortness of breath Sleep disorder Ureterovesical junction (UVJ) obstruction Urinary urgency Vaginal yeast infection Weight gain Historical No qualifying data Procedure/Surgical History Removal of stent (01/11/2019), Cystoscopic laser lithotripsy of ureteric calculus (01/09/2019), diagnostic laparoscopy, bilateral salpingectomy with removal of hydrosalpinx, lysis of adhesions, diagnostic hysteroscopy, endometrial ablation (01/16/2015), Cholecystectomy. Medications Albuterol (Eqv-Proventil HFA) 90 mcg/inh inhalation aerosol azithromycin 250 mg Tab cyclobenzaprine 10 mg Tab, 10 mg= 1 tab(s), Oral, TID, PRN Diflucan 150 mg Tab, 150 mg= 1 tab(s), Oral, Once, 1 refills levothyroxine 50 mcg (0.05 mg) Tab, 50 mcg= 1 tab(s), Oral, Daily phentermine 37.5 mg Tab, 37.5 mg= 1 tab(s), Oral, Daily Allergies penicillins (lips blue) sulfamethoxazole (rash) Social History Alcohol - Denies Alcohol Use, 01/05/2015 Substance Abuse - Denies Substance Abuse, 01/05/2015 Tobacco - Denies Tobacco Use, 01/05/2015 Never (less than 100 in lifetime) Tobacco Use:. Never Smokeless Tobacco Use:. Cigarettes, Household tobacco concerns: No. Yes, 04/15/2024 Family History Family history is negative Immunizations Vaccine Date Status Comments SARS-CoV-2 (COVID-19) mRNA BNT-162b2 vax 02/16/2021 Recorded 2022-10-17: TPV40 SARS-CoV-2 (COVID-19) mRNA BNT-162b2 vax 10/04/2020 Recorded 2022-10-17: TPV40 Normal [facility] Comment on above: Result Comment: Elec tronically Signed By: Sonam Bertrand\.br\Date and Time Signed: 04/15/24 09:01 EST Family Medicine Office/Clini c Noteon 01-03-2024 Family Medicine Office/Clinic Note Family Medicine Office/Clinic Note HPI Staff Bonilla is a 48 year old male presenting with discussing wanting to discuss going back on Adipex When she woke up she woke up gasping for air this morning the first time this has happened to her she tried her inhaler this morning, did not help at all She had bronchitis about 3 weeks ago and wondering if it has anything to do with this, She said she feels like she is walking around with brain fog also and has not been sleeping, she can not stay asleep... said it feels like a panic attack Still wants to get on Adipex- Was on this she but quit because it wasn't working History of Present Illness pt presents today for c/o SOB and dizziness Review of Systems PHQ Score Initial Depression Screen Score: 0 SCORE Physical Exam Vitals & Measurements T: 36.1 ?C(Temporal Artery) HR: 98(Peripheral) RR: 20 BP: 124/82 SpO2: 99% HT: 64 in HT: 163.0 cm WT: 97.4 kg WT: 214.28 lb BMI: 36.66 General: alert, no acute distress ENMT: oral mucosa moist, no pharyngeal erythema or exudate Cardiovascular: regular rate and rhythm, normal peripheral perfusion Respiratory: Lungs CTA, respirations non labored Extremities: no deformity, no trauma Neurological: oriented x 4, LOC appropriate for age, CN II-XII intact, motor strength equal & normal bilaterally, speech normal during visit patient is taking deep breaths, lungs are clear Assessment/Plan 1. Shortness of breath (R06.02: Shortness of breath) pt woke up gasping for air. and all morning she feels like she just can't get a deep enough breath. feels like she isn't getting enough O2. pt sent to [facility] for D dimer and chest x ray. discussed if D Dimer is positive she will need to be scanned for PE. pt denies any chest pain. pt wanted to discuss weight loss. but we will wait until she is feeling better to discuss that. she was supposed to have gastric sleeve but couldn't get scheduled until January and her insurance changes then. so she has to meet large deductible before insurance will cover it. kenalog injection given in office. discussed this could be after effects of her being sick a couple weeks ago. possible Covid long hauler asthma. pt verbalizes understanding. RTC as needed Ordered: triamcinolone, 40 mg = 1 mL, Injection, IntraARTICULAR, Once, Stop date 01/03/24 9:52:00 EDT, Routine, Start date 01/03/24 9:52:00 EDT, 01/03/24 9:52:00 EDT 2. Dizziness (R42: Dizziness and giddiness) pt states she is feeling dizzy. 3. Non-smoker (Z78.9: Other specified health status) continue not smoking Ordered: triamcinolone, 40 mg = 1 mL, Injection, IntraARTICULAR, Once, Stop date 01/03/24 9:52:00 EDT, Routine, Start date 01/03/24 9:52:00 EDT, 01/03/24 9:52:00 EDT 4. BMI 36.0-36.9,adult (Z68.36: Body mass index [BMI] 36.0-36.9, adult) BMI education given Ordered: triamcinolone, 40 mg = 1 mL, Injection, IntraARTICULAR, Once, Stop date 01/03/24 9:52:00 EDT, Routine, Start date 01/03/24 9:52:00 EDT, 01/03/24 9:52:00 EDT 5. Class 1 obesity due to excess calories in adult (E66.09: Other obesity due to excess calories) see above Ordered: triamcinolone, 40 mg = 1 mL, Injection, IntraARTICULAR, Once, Stop date 01/03/24 9:52:00 EDT, Routine, Start date 01/03/24 9:52:00 EDT, 01/03/24 9:52:00 EDT Follow-up No qualifying data available Problem List/Past Medical History Ongoing Abnormal x-ray of cervical spine Bronchitis Carpal tunnel syndrome, bilateral Class 1 obesity due to excess calories in adult Daytime somnolence Dizziness Dysuria Encounter for weight management Frequent urination Injury of left little finger Kidney stone Left shoulder pain Loud snoring Microhematuria Nausea Neck pain Nocturia Shortness of breath Sleep disorder Ureterovesical junction (UVJ) obstruction Urinary urgency Vaginal yeast infection Weight gain Historical No qualifying data Procedure/Surgical History Removal of stent (01/11/2019), Cystoscopic laser lithotripsy of ureteric calculus (01/09/2019), diagnostic laparoscopy, bilateral salpingectomy with removal of hydrosalpinx, lysis of adhesions, diagnostic hysteroscopy, endometrial ablation (01/16/2015), Cholecystectomy. Medications Albuterol (Eqv-Proventil HFA) 90 mcg/inh inhalation aerosol azithromycin 250 mg Tab cyclobenzaprine 10 mg Tab, 10 mg= 1 tab(s), Oral, TID, PRN levothyroxine 50 mcg (0.05 mg) Tab, 50 mcg= 1 tab(s), Oral, Daily Allergies penicillins (lips blue) sulfamethoxazole (rash) Social History Alcohol - Denies Alcohol Use, 01/05/2015 Substance Abuse - Denies Substance Abuse, 01/05/2015 Tobacco - Denies Tobacco Use, 01/05/2015 Never (less than 100 in lifetime) Tobacco Use:. Never Smokeless Tobacco Use:. Cigarettes, Household tobacco concerns: No. Yes, 01/03/2024 Family History Family history is negative Immunizations Vaccine Date Status Comments SARS-CoV-2 (COVID-19) mRNA BNT-162b2 vax 02/16/2021 Recorded 2022-10-17: TPV40 SARS-CoV-2 (COVID-19) (more content not included)... Normal [facility] Comment on above: Result Comment: Elec tronically Signed By: Sonam Bertrand\.br\Date and Time Signed: 01/03/24 10:03 EDT Ambulatory Visit Summaryon 0 11-29-2023 Ambulatory Visit Summary Ambulatory Visit Summary BONILLA TAVERA :1975 Visit Date:11/29/2023 Ambulatory Visit Instructions Your Diagnosis BMI 35.0-35.9,adult Class 1 obesity due to excess calories in adult Nonsmoker Your Care Team Attending Physician - Sonam Bertrand Primary Care Physician - Sonam Bertrand This Is Your Medications List albuterol (Albuterol (Eqv-Proventil HFA) 90 mcg/inh inhalation aerosol) azithromycin (azithromycin 250 mg Tab) levothyroxine (levothyroxine 50 mcg (0.05 mg) Tab) Procedures Performed Removal of stent (01/11/2019), Cystoscopic laser lithotripsy of ureteric calculus (01/09/2019), diagnostic laparoscopy, bilateral salpingectomy with removal of hydrosalpinx, lysis of adhesions, diagnostic hysteroscopy, endometrial ablation (01/16/2015), Cholecystectomy. Discharge Vitals Heart Rate (Peripheral) 75 Respiratory Rate 16 Blood Pressure 128/74 Height 163 cm Height 64 in Weight 93 kg Weight 204.6 lb BMI 35 Medications What How Much When Instructions Unchanged albuterol (Albuterol (Eqv-Proventil HFA) 90 mcg/ inh inhalation aerosol) INHALE 2 PUFFS EVERY 4 HOURS IF NEEDED FOR WHEEZING. Unchanged azithromycin (azithromycin 250 mg Tab) TAKE 2 TABLETS BY MOUTH TODAY, THEN TAKE 1 TABLET DAILY FOR 4 DAYS DIRECTED Unchanged levothyroxine (levothyroxine 50 mcg (0.05 mg) Tab) 1 Tablets By Mouth Every day Allergies penicillins (lips blue) sulfamethoxazole (rash) Problems Ongoing - Any problem that you are currently receiving treatment for. Abnormal x-ray of cervical spine Carpal tunnel syndrome, bilateral Class 1 obesity due to excess calories in adult Daytime somnolence Dysuria Encounter for weight management Frequent urination Injury of left little finger Kidney stone Left shoulder pain Loud snoring Microhematuria Nausea Neck pain Nocturia Sleep disorder Ureterovesical junction (UVJ) obstruction Urinary urgency Vaginal yeast infection Weight gain Patient Survey You may receive a survey via text or e-mail asking about your office visit. Please share your experience with us by completing your survey. We appreciate your feedback and thank you for choosing us for your care. [facility] Family Medicine Office/Clini c Noteon 11-29-2023 Family Medicine Office/Clinic Note Family Medicine Office/Clinic Note Chief Complaint f/u to Urgent Care HPI Staff Bonilla is a 48 year old female presenting with ER followup: Hospital: Urgent care Visit date: Symptoms the patient presented with: bronchitis Current concerns: still not feeling any better DC'd home with Z pack & inhaler. Has 1 more pill from Z pack left. Still not feeling better. Hard time breathing. (Shallow) Intermittent coughing fits. Yellow phlegm at times. Also feeling tired more than usual. History of Present Illness pt presents today for urgent care follow up. Review of Systems PHQ Score Initial Depression Screen Score: 0 SCORE Physical Exam Vitals & Measurements HR: 75(Peripheral) RR: 16 BP: 128/74 SpO2: 95% HT: 64 in HT: 163 cm WT: 93 kg WT: 204.6 lb BMI: 35 General: alert, no acute distress ENMT: oral mucosa moist, no pharyngeal erythema or exudate Cardiovascular: regular rate and rhythm, normal peripheral perfusion Respiratory: Lungs CTA, respirations non labored Extremities: no deformity, no trauma Neurological: oriented x 4, LOC appropriate for age, CN II-XII intact, motor strength equal & normal bilaterally, speech normal Assessment/Plan 1. Bronchitis (J40: Bronchitis, not specified as acute or chronic) pt presents for follow up from urgent care. was diagnosed with bronchitis. pt is not feeling any better and has one Zithromax dose left. cough syrup was ordered yesterday for her and I will also send a medrol dose pack in. officered kenalog injection but she is not interested. lungs were clear on exam today. discussed this is probably viral and she will just have to give it time. RTC as needed 2. BMI 35.0-35.9,adult (Z68.35: Body mass index [BMI] 35.0-35.9, adult) BMI education given Ordered: methylPREDNISolone, = 1 packet(s), Oral, As Directed, as directed on package labeling, X 6 day(s), # 21 tab(s), Refills(s) 0, Pharmacy: [id number] [facility], 163, cm, 11/29/23 9:00:00 EDT, Height/Length Dosing, 93, kg, 11/29/23 9:00:00 EDT, Weight Dosing spironolactone, 25 mg = 1 tab(s), Oral, BID, PRN Edema, # 60 tab(s), Refills(s) 1, Pharmacy: [facility]/pharmacy #[id number], 162, cm, 10/04/23 17:32:00 EDT, Height/Length Dosing, 93.8, kg, 10/04/23 17:32:00 EDT, Weight Dosing 3. Class 1 obesity due to excess calories in adult (E66.09: Other obesity due to excess calories) see above Ordered: methylPREDNISolone, = 1 packet(s), Oral, As Directed, as directed on package labeling, X 6 day(s), # 21 tab(s), Refills(s) 0, Pharmacy: [facility], 163, cm, 11/29/23 9:00:00 EDT, Height/Length Dosing, 93, kg, 08/14/24 9:00:00 EDT, Weight Dosing 4. Nonsmoker (Z78.9: Other specified health status) continue not smoking Ordered: methylPREDNISolone, = 1 packet(s), Oral, As Directed, as directed on package labeling, X 6 day(s), # 21 tab(s), Refills(s) 0, Pharmacy: [facility] [id number] [facility], 163, cm, 11/29/23 9:00:00 EDT, Height/Length Dosing, 93, kg, 11/29/23 9:00:00 EDT, Weight Dosing ondansetron, 4 mg = 1 tab(s), Oral, q8hr, PRN Nausea, # 10 tab(s), Refills(s) 0, Pharmacy: [facility], 162, cm, 07/19/23 8:31:00 EDT, Height/Length Dosing, 89.5, kg, 07/19/23 8:31:00 EDT, Weight Dosing spironolactone, 25 mg = 1 tab(s), Oral, BID, PRN Edema, # 60 tab(s), Refills(s) 1, Pharmacy: [facility]/pharmacy #[id number], 162, cm, 10/04/23 17:32:00 EDT, Height/Length Dosing, 93.8, kg, 10/04/23 17:32:00 EDT, Weight Dosing Orders: brompheniramine/codein e/phenylephrine, 5 mL, Oral, q4hr, 120 mL, Refill(s) 0, [facility] [id number] [facility], 162, cm, 10/04/23 17:32:00 EDT, Height/Length Dosing, 93.8, kg, 10/04/23 17:32:00 EDT, Weight Dosing Follow-up No qualifying data available Problem List/Past Medical History Ongoing Abnormal x-ray of cervical spine Bronchitis Carpal tunnel syndrome, bilateral Class 1 obesity due to excess calories in adult Daytime somnolence Dysuria Encounter for weight management Frequent urination Injury of left little finger Kidney stone Left shoulder pain Loud snoring Microhematuria Nausea Neck pain Nocturia Sleep disorder Ureterovesical junction (UVJ) obstruction Urinary urgency Vaginal yeast infection Weight gain Historical No qualifying data Procedure/Surgical History Removal of stent (01/11/2019), Cystoscopic laser lithotripsy of ureteric calculus (01/09/2019), diagnostic laparoscopy, bilateral salpingectomy with removal of hydrosalpinx, lysis of adhesions, diagnostic hysteroscopy, endometrial ablation (01/16/2015), Cholecystectomy. Medications Albuterol (Eqv-Proventil HFA) 90 mcg/inh inhalation aerosol azithromycin 250 mg Tab levothyroxine 50 mcg (0.05 mg) Tab, 50 mcg= 1 tab(s), Oral, Daily Medrol 4 mg Tab, 1 packet(s), Oral, As Directed Allergies penicillins (lips blue) sulfamethoxazole (rash) Social History Alcohol - Denies Alcohol Use, 01/05/2015 Substance Abuse - Denies Substance Abuse, 01/05/2015 Tobacco - Denies Tobacco Use, 01/05/2015 Never (less than 100 in lifetime) (more content not included)... [facility] Comment on above: Result Comment: Elec tronically Signed By: Sonam Bertrand\.br\Date and Time Signed: 11/29/23 09:16 EDT XR CHEST 2 VIEWSon XR CHEST 2 VIEWS EXAM: XR - CHEST 2 VIEWS Clinical History: Shortness of breath Reference Exam: No comparison Findings: The cardiopericardial silhouette is normal in appearance. The pulmonary vessels are not cephalized. There is no alveolar edema, pneumonia, or pneumothorax. Negative for pleural effusion. The skeleton is unremarkable. Postprocedural changes in the right upper quadrant herald cholecystectomy. Impression: Negative for specific acute cardiopulmonic pathology. Dictated on: 11/27/2023 8:26 AM This report has been electronically signed and approved by the interpreting Radiologist. Electronically Signed Tre Santoro M.D. 2023-11-27 08:26:16 Normal Not Available XR pre/post mri xrayon 11-15 XR pre/post mri xray [facility] [place] [address] [place] [address] MRI Report Signed Patient: Bonilla Tavera MR#: [id number] 0 : 1975 Acct:[id number] Age/Sex: 48 / F ADM Date: 11/15/23 Loc: MR Room: Type: DEP CLI Attending Dr: Sonam David CARTRIDGE LOADER-C Copies to: Sonam David CNP Ordering Provider: Sonam David CNP Date of Service: 11/15/23 MR/MR cervical spine wo con: M54.2 ([id number]) XR/XR pre/post mri xray: M54.2 MR cervical spine wo con, XR pre/post mri xray 11/15/2023 8:03 PM SIGNS AND SYMPTOMS: Neck pain and left shoulder pain PROTOCOL: Multiplanar multisequence MR images of the cervical spine were obtained without IV contrast lateral and bilateral oblique radiographs of the cervical spine were obtained. COMPARISON: None. FINDINGS: Radiographs of the cervical spine: There is straightening of the normal cervical lordosis. This preservation of vertebral body heights and intervertebral discs. There is no fracture or subluxation. No significant bony neural foraminal stenosis. MRI cervical spine: There is straightening of the normal cervical lordosis. The bones are in anatomic alignment otherwise. There is preservation of vertebral body heights and intervertebral disc spaces. The marrow signal is within normal limits. The cord is normal in signal. No epidural or paraspinous fluid collection is appreciated. The visualized paraspinous soft tissues are within normal limits. The prevertebral soft tissues are within normal limits. At C2-C3: There is a normal disc, central canal, and neural foramen. At C3-C4: There is a normal disc, central canal, and neural foramen. At C4-C5: There is a normal disc, central canal, and neural foramen. At C5-C6: There is a normal disc, central canal, and neural foramen. At C6-C7: There is a normal disc, central canal, and neural foramen. At C7-T1: There is a normal disc, central canal, and neural foramen. MR/MR cervical spine wo con IMPRESSION: There is no cord compression or cord signal abnormality. No significant spinal canal or neural foraminal narrowing. There is straightening of the normal cervical lordosis which may be positional or secondary muscle spasm. Impression dictated by: Tre Garcia M.D.11/16/2023 12:53 PM Dictation Location: [place] [address] Transcribed By: [facility] 11/16/23 1251 Dictated By: Tre Garcia II, MD 11/16/23 1247 Signed By: 11/16/23 1253 Normal [facility] Telephone Encounteron 2023 Pharmacology Teacher Authentication Interface Message Text Pt called as she is interested in starting the process to get the bariatric surgery. Contact pt @[phone] Normal [facility] Family Medicine Office/Clini c Noteon 10-05-2023 Family Medicine Office/Clinic Note HPI Staff Bonilla is a 48 year old female presenting to discuss weight loss options Pt would like to discuss gastric sleeve, Pain characteristics: Pain location: left shoulder Intensity: intermittent Onset: 1.5 years Medication used: Pt was referred to pain management 05/05/23 Pt states pain management did some things to her neck and it made her arm pain worse. They had told her they would contact her and she hasn't heard from them. Continues to wake up in the middle of the night with pain. Pain is intermittent. Pt states left top of thigh will go numb intermittently. Pt has spoke with insurance and she needs a referral for weight loss. She does have a list of 3 doctors that are covered. [facility], [facility], [facility]. Pt having has tried semaglutide, adipex, diet and exercise, weight watchers. Has seen a weight loss doctor for 1 year and lost some but not a lot. History of Present Illness pt presents today with continued left shoulder pain. Review of Systems PHQ Score Initial Depression Screen Score: 0 SCORE Physical Exam Vitals & Measurements HR: 80(Peripheral) RR: 18 BP: 124/80 HT: 64 in HT: 162.0 cm WT: 93.8 kg WT: 206.36 lb BMI: 35.74 General: alert, no acute distress ENMT: oral mucosa moist, no pharyngeal erythema or exudate Cardiovascular: regular rate and rhythm, normal peripheral perfusion Respiratory: Lungs CTA, respirations non labored Extremities: no deformity, no trauma Neurological: oriented x 4, LOC appropriate for age, CN II-XII intact, motor strength equal & normal bilaterally, speech normal normal range of motion of left shoulder at this visit Assessment/Plan 1. Encounter for weight management (Z76.89: Persons encountering health services in other specified circumstances) patient is discouraged with weight loss. has tried ozempic, adipex, weight watchers, diet and exercise. would like referral to weight loss surgeon through [facility]. she contacted insurance and was told CC would be covered. will send referral. Ordered: fluconazole, 150 mg = 1 tab(s), Oral, Once, take 1 devries on day one and 1 tab on day four, # 2 tab(s), Refills(s) 1, Pharmacy: [facility], 162, cm, 07/19/23 8:31:00 EDT, Height/Length Dosing, 89.5, kg, 07/19/23 8:31:00 EDT, Weight Dosing [facility] Ambulatory Referral 2. Left shoulder pain (M25.512: Pain in left shoulder) patient has had x ray been treated with anti inflammatory, gabapentin, steroid, has been to pain management and PT. but is still having pain that radiates down her left shoulder. will order MRI. pt will have it done at an outside hospital. patient states the pain is the worst when I am laying in bed. it will wake me up out of a sleep from the pain. 3. Abnormal x-ray of cervical spine (R93.7: Abnormal findings on diagnostic imaging of other parts of musculoskeletal system) MRI ordered. 4. Neck pain (M54.2: Cervicalgia) xray of cervical spine abnormal. will order MRI 5. Non-smoker (Z78.9: Other specified health status) continue not smoking Ordered: fluconazole, 150 mg = 1 tab(s), Oral, Once, take 1 devries on day one and 1 tab on day four, # 2 tab(s), Refills(s) 1, Pharmacy: [facility], 162, cm, 07/19/23 8:31:00 EDT, Height/Length Dosing, 89.5, kg, 07/19/23 8:31:00 EDT, Weight Dosing 6. BMI 35.0-35.9,adult (Z68.35: Body mass index [BMI] 35.0-35.9, adult) BMI education given. Follow-up No qualifying data available Problem List/Past Medical History Ongoing Abnormal x-ray of cervical spine Carpal tunnel syndrome, bilateral Daytime somnolence Dysuria Encounter for weight management Frequent urination Injury of left little finger Kidney stone Left shoulder pain Loud snoring Microhematuria Nausea Neck pain Nocturia Sleep disorder Ureterovesical junction (UVJ) obstruction Urinary urgency Vaginal yeast infection Weight gain Historical No qualifying data Procedure/Surgical History Removal of stent (01/11/2019), Cystoscopic laser lithotripsy of ureteric calculus (01/09/2019), diagnostic laparoscopy, bilateral salpingectomy with removal of hydrosalpinx, lysis of adhesions, diagnostic hysteroscopy, endometrial ablation (01/16/2015), Cholecystectomy. Medications levothyroxine 50 mcg (0.05 mg) Tab, 50 mcg= 1 tab(s), Oral, Daily ondansetron 4 mg Tab, 4 mg= 1 tab(s), Oral, q8hr, PRN Allergies penicillins (lips blue) sulfamethoxazole (rash) Social History Alcohol - Denies Alcohol Use, 01/05/2015 Substance Abuse - Denies Substance Abuse, 01/05/2015 Tobacco - Denies Tobacco Use, 01/05/2015 Never (less than 100 in lifetime) Tobacco Use:. Never Smokeless Tobacco Use:. Household tobacco concerns: No., 10/04/2023 Family History Family history is negative Immunizations Vaccine Date Status Comments SARS-CoV-2 (COVID-19) mRNA BNT-162b2 vax 02/16/2021 Recorded 2022-10-17: TPV40 SARS-CoV-2 (COVID-19) mRNA (more content not included)... [facility] Comment on above: Result Comment: Elec tronically Signed By: Sonam Bertrand\.br\Date and Time Signed: 10/05/23 09:17 EDT Physician Referralon 024 Physician Referral [id number] Normal [facility] RESPIRATORY PANEL PLUSon Adenovirus Not detected Normal NOT DETECTED [facility] Comment on above: Performed By: #### R SPLUS #### [facility] [address] [place] [address] Dr. Isidoro Ventura. Parapertusis Not detected Normal NOT DETECTED [facility] Comment on above: Performed By: #### R SPLUS #### [facility] [address] [place] [address] Dr. Isidoro Mckeon Pertussis Not detected Normal NOT DETECTED [facility] Comment on above: Performed By: #### R SPLUS #### [facility] [address] [place] [address] Dr. Isidoro Bryant Chlamydia Pneumoniae Not detected Normal NOT DETECTED [facility] Comment on above: Performed By: #### R SPLUS #### [facility] [address] [place] [address] Dr. Isidoro Bryant Coronavirus 229E Not detected Normal NOT DETECTED [facility] Comment on above: Performed By: #### R SPLUS #### [facility] [address] [place] [address] Dr. Isidoro Bryant Coronavirus HKU1 Not detected Normal NOT DETECTED [facility] Comment on above: Performed By: #### R SPLUS #### [facility] [address] [place] [address] Dr. Isidoro Bryant Coronavirus NL63 Not detected Normal NOT DETECTED [facility] Comment on above: Performed By: #### R SPLUS #### [facility] [address] [place] [address] Dr. Isidoro Bryant Coronavirus OC43 Not detected Normal NOT DETECTED [facility] Comment on above: Performed By: #### R SPLUS #### [facility] [address] [place] [address] Dr. Isidoro Bryant Influenza A H1 2009 Not detected Normal NOT DETECTED [facility] Comment on above: Performed By: #### R SPLUS #### [facility] [address] [place] [address] Dr. Isidoro Bryant Influenza A H3 Not detected Normal NOT DETECTED [facility] Comment on above: Performed By: #### R SPLUS #### [facility] [address] [place] [address] Dr. Isidoro Bryant Influenza B Not detected Normal NOT DETECTED [facility] Comment on above: Performed By: #### R SPLUS #### [facility] [address] [place] [address] Dr. Isidoro Bryant Metapneumovirus Detected Abnormal NOT DETECTED [facility] Comment on above: Performed By: #### R SPLUS #### [facility] [address] [address] [address] Isidoro Bryant Mycoplas. Pneumoniae Not detected Normal NOT DETECTED [facility] Comment on above: Performed By: #### R SPLUS #### [facility] [address] [place] [address] [address] Isidoro Bryant Parainfluenza 1 Not detected Normal NOT DETECTED [facility] Comment on above: Performed By: #### R SPLUS #### [facility] [address] [place] [address] Dr. Isidoro Bryant Parainfluenza 2 Not detected Normal NOT DETECTED [facility] Comment on above: Performed By: #### R SPLUS #### [facility] [address] [place] [address] Dr. Isidoro Bryant Parainfluenza 3 Not detected Normal NOT DETECTED [facility] Comment on above: Performed By: #### R SPLUS #### [facility] [address] [place] [address] Dr. Isidoro Bryant Parainfluenza 4 Not detected Normal NOT DETECTED [facility] Comment on above: Performed By: #### R SPLUS #### [facility] [address] [place] [address] Dr. Isidoro Bryant Rhino/Enterovirus Not detected Normal NOT DETECTED [facility] Comment on above: Performed By: #### R SPLUS #### [facility] [address] [place] [address] Dr. Isidoro Bryant RP2 Header 1 RESPIRATORY PANEL: VIRUSES Normal [facility] Comment on above: Performed By: #### R SPLUS #### [facility] [address] [place] [address] Dr. Isidoro Bryant RP2 Header 2 RESPIRATORY PANEL: BACTERIA Normal [facility] Comment on above: Performed By: #### R SPLUS #### [facility] [address] [place] [address] Dr. Isidoro Bryant RSV Not detected Normal NOT DETECTED [facility] Comment on above: Performed By: #### R SPLUS #### [facility] [address] [place] [address] [address] Isidoro Bryant SARS-CoV-2 (COVID-19) RNA SHEKHAR+probe Ql (Unsp spec) Not detected Normal NOT DETECTED [facility] Comment on above: Performed By: #### R SPLUS #### [facility] [address] [place] [address] Dr. Isidoro Bryant Encounters Encounter Date Encounter Type Care Provider Facility Start: 08-19-2024 End: 08-19-2024 ambulatory COAT EXAMINER Sonam L Frankie Facility:[facility] Start: 07-08-2024 End: 07-08-2024 ambulatory COAT EXAMINER Sonam L Frankie Facility:[facility] Start: 04-15-2024 End: 04-15-2024 ambulatory COAT EXAMINER Sonam L Frankie Facility:[facility] Start: 01-03-2024 End: 01-03-2024 ambulatory COAT EXAMINER Sonam L Frankie Facility:[facility] Start: 11-29-2023 End: 11-29-2023 ambulatory COAT EXAMINER Sonam L Frankie Facility:[facility] Start: 11-26-2023 End: 11-26-2023 ambulatory CHIDI NICHOLAS Not Available Start: 11-15-2023 End: 11-15-2023 Patient encounter procedure CARTRIDGE LOADER-C Sonam Frankie Work Phone: [facility] [place] Work Phone: Start: 11-15-2023 End: 11-15-2023 ambulatory CARTRIDGE LOADER-C Sonam Dickson Frankie Work Phone: [facility] Work Phone: Start: 10-04-2023 End: 10-04-2023 ambulatory COAT EXAMINER Sonam L Frankie Facility:[facility] Start: 04-12-2021 End: 04-12-[address] GIOVANI NI Facility: Plan of Treatment Date Care Activity Detail Author Start: 11-15-2023 XR pre/post mri xray XR pre/post mri xray [facility] Start: 11-15-2023 [facility] Start: 11-15-2023 MR Cervical spine WO contrast [facility] Start: 11-15-2023 MRI of cervical spin e without contrast MR cervical spine wo con [facility] Payers Date Payer Category Payer Self-pay [id number] 2023 Unknown [id number] 1975 Unknown [id number] 1975 Unknown [id number] [id number] 1975 Unknown [id number] [id number] 1975 Unknown [id number] [id number] 1975 Unknown [id number] [id number] 1975 Unknown [id number] [id number] 1975 Unknown [id number] [id number] 1975 Unknown [id number] [id number] 1975 Unknown [id number] [id number] 1959 Unknown [id number] Private Health Insurance [facility] [id number] Unknown [id number] Social History Date Type Detail Facility Start: 05-28-2017 Tobacco smoking stat [facility] Never smoked tobacco (finding) [facility] Start: 1975 Sex Assigned At Female F [facility] Evaluation note Note Date & Type Note Facility Evaluation note No assessment information availa ble [facility] Work Phone: Summary Purpose Family History No Family History Records Found Relationship Condition Age at Onset Recorded Date/T jessica father Unknown sister Unknown Advance Directives No Advanced Directives Records Found Advance Directive Response Recorded Date/ Time Advance Directives No October 29 8:48am Chief Complaint and Reason for Visit Chief Complaint r93.7 m25.512 m54.2 Additional Source Comments INFORMATION SOURCE (unrecogn ized section and content) DATE CREATED AUTHOR 04/18/2021 [facility] DATE CREATED AUTHOR AUTHOR'S ORGANIZ ATION 11/01/2023 [facility] DATE CREATED AUTHOR AUTHOR'S ORGANIZ ATION 11/20/2023 [facility] DATE CREATED AUTHOR AUTHOR'S ORGANIZ ATION 11/27/2023 [facility] EPIC DATE CREATED AUTHOR AUTHOR'S ORGANIZ ATION 08/22/2024 [facility] Care Teams (unrecognized sec tion and content) Team Status: Active Member Role Status Dates Sonam David NP-C Primary Care Provider Active Team Status: Inactive Member Role Status Dates JONO Jameson Primary Care Pro vider, Attending Provider Active Start: November 15, 2023 End: November 15, 2023 Goals (unrecognized section and content) Goals may be documented in a n alternate section FOR RECORDS PERTAINING TO PATIENTS WHO ARE [...] BE BASED ON THE PRIMARY CLINICAL RECORDS. [facility]. provides no warranty or guarantee of the accuracy or completeness of information in this document.
== END 2024-09-10 09:08 | disposition home or self-care (01) ==
LOC: RAD 09:10
PROVIDERS: PCP Nurse Practitioner; Visit Provider Nurse Practitioner
DX: M25.511 Pain in right shoulder (principal); S49.91XA Unspecified injury of right shoulder and upper arm, initial encounter; W19.XXXA Unspecified fall, initial encounter
CPT/HCPCS: 73030